=== PATIENT | female | born 1990 | race Caucasian/White ===

== ENCOUNTER 2018-10-22 10:58 | Emergency (ER) | payer MEDICAID, SELFPAY ==
[2018-10-22 11:00] VITALS: BP 119/69; PULSE 83; RESP 16; TEMP 36.8; O2SAT 97; BMI 26.4
--- NOTE | 2018-10-22 11:27 | ED.VIS.GEN ---
History of Present Illness Chief Complaint: Nausea/Vomiting Informant: Patient Onset: Today Narrative: approximately 20 weeks gestation presents for evaluation concerns of transient bulge from right side of the abdomen causing her have one emesis. Patient [facility] the past 3 weeks for opiate dependence and recovery. Reports was hospitalized for 5 days in [place], currently on Suboxone therapy and prenatals. Denies any complications during . She felt it felt weird being up on the right side therefore came for evaluation. Currently denies any symptoms. No fevers. No urinary symptoms. No vaginal bleeding. Prior similar symptoms: No Past Medical History Primary Care Physician: NOT,DEFINED [Primary Care Provider] - Smoking Status: Current every day smoker Review of Systems General: Denies: Chills, Fever, Sweats Eyes: Denies: Visual changes - bilaterally, Diplopia ENT: Denies: Rhinorrhea, Sore throat Cardiovascular: Denies: Chest pain, Palpitations Respiratory: Denies: Dyspnea, Cough, Dyspnea on exertion Gastrointestinal: Reports: Abdominal pain, Nausea, Vomiting. Denies: Diarrhea, Melena, Hematochezia Genitourinary: Denies: Dysuria, Hematuria, Frequency Musculoskeletal: Denies: Back pain, Extremity Pain Skin: Denies: Rash, Wounds Neurological: Denies: Headache, Weakness, Numbness Physical Exam Vital Signs/Narrative: Vital Signs Temp Pulse Resp BP Pulse Ox 10/22/18 11:00 98.2 F 83 16 119/69 97 Inital Vital Signs reviewed: Yes General: Well nourished, Well developed, No Acute Distress Head: Normocephalic, Atraumatic Eyes: Perrl, EOMI ENT: Moist mucous membranes, No rhinorrhea Neck: Supple, Nontender Cardiovascular: Regular rate, Regular rhythm, No murmurs Respiratory: No distress, CTA bilaterally, Chest nontender Abdomen: Soft, Nondistended, Normal bowel sounds, - - Gravid abdomen, negative Connor's or McBurney's tenderness. Back: Nontender, Normal Inspection Extremities: Nontender, No edema Skin: Normal color, No rash Neurological: Alert, Oriented x3, Cranial nerves II-XII grossly intact, Normal Strength, Normal Sensation Psychological: Normal affect, Normal Mood Diagnostic/Tx/Re-eval - Medical Decision Making Bedside ultrasound heart tones 125 with positive movement. Patient has history concerns with suspected movement causing bulging sensation and complaint from patient, currently asymptomatic. Patient reassured. Currently denies any pain any nausea or vomiting. She will keep her OB appointment in 2 days. ED Disposition - Plan for ED Patient: Disposition: Home or Assisted Living Diagnosis: Abdominal pain during Referrals: NOT,DEFINED [Primary Care Provider] - Additional Instructions: Suspect what you felt was movement of baby. Ultrasound notes heart tones 125. Keep your OB appointment in 2 days.
[2018-10-22 11:55] VITALS: RESP 16
== END 2018-10-22 11:55 | disposition home or self-care (01) ==
LOC: ED 11:46
PROVIDERS: Emergency Provider Emergency Medicine
DX: O26.892 Other specified pregnancy related conditions, second trimester (principal); R10.9 Unspecified abdominal pain; O99.332 Smoking (tobacco) complicating pregnancy, second trimester; F17.200 Nicotine dependence, unspecified, uncomplicated; O99.322 Drug use complicating pregnancy, second trimester; F11.20 Opioid dependence, uncomplicated; Z3A.20 20 weeks gestation of pregnancy
CPT/HCPCS: 99282

== ENCOUNTER 2019-03-06 18:00 | Inpatient (IN) | payer MEDICAID, SELFPAY ==
[2018-12-30 13:57] VITALS: BMI 28.3
[2019-03-06 18:11] VITALS: BMI 34.9
[2019-03-06] MEDS: Lactated Ringers 1,000 ML 50 ML IV (18:40)
[2019-03-06 18:55] LABS: Absolute Lymphocyte Count 2.46 X10^3/uL (0.83-4.51); Absolute Neutrophil Count 6.8 X10^3/uL (2.0-7.7); Basophil# 0.05 X10^3/uL; Basophil% 0.5 % (0-1); Eosinophil# 0.17 X10^3/uL; Eosinophils% 1.6 % (0-5); Hematocrit 31.5 % (37-47); Hemoglobin 10.1 g/dL (12.0-15.0); Lymphocyte # 2.46 X10^3/ul (4.0); Lymphocyte % 23.9 % (19-41); Mean Corp Hgb Conc 32.1 g/dL (32-36); Mean Corpuscular Volume 90.5 fL (81-99); Mean Platelet Vol. 10.9 fl (6.2-12.0); Monocyte# 0.76 X10^3/uL; Monocyte% 7.4 % (0-10); NRBC Flagged by Analyzer 0 % (0-5); Neutrophil # 6.75 X10^3/uL (2.7-7.7); Neutrophil % 65.4 % (47-70); Platelet Count 331 K/mm3 (150-450); RBC Distribution Width CV 15.2 % (11.6-14.6); Red Blood Count 3.48 M/mm3 (4.2-5.4); White Blood Count 10.3 K/mm3 (4.4-11.0)
[2019-03-06 19:14] LABS: Amphetamine Urine VISTA NEGATIVE (<1000 ng/mL); Barbiturate Urine VISTA NEGATIVE (< 200 ng/mL); Benzodiazepine Urine VISTA NEGATIVE (< 200 ng/mL); Cocaine Urine VISTA NEGATIVE (< 300 ng/mL); Ecstacy Urine VISTA NEGATIVE (< 500 ng/mL); Methadone Urine VISTA NEGATIVE (< 300 ng/mL); PCP Urine VISTA NEGATIVE (< 25 ng/mL); THC Urine VISTA NEGATIVE (< 50 ng/mL); Vista UDS pH Range 5
[2019-03-06] MEDS: Oxytocin 30 units/NS 500 ml 30 UNITS/500 ML IV.SOLN IV (20:22)
--- NOTE | 2019-03-06 20:45 | PCM.HP.OB ---
History Date of Admission: 03/06/19 Final SEBASTIÁN: 03/17/19 Gestational age: 38 Weeks and 3 Days History of this : Patient presents for induction of labor. Office NST showed a prolonged deceleration. Medical History: Medical History (Last Updated 03/06/19 @ 20:47 by Arcenio Weston) Seizures (Chronic) R56.9 H/O emotional problems (Chronic) Z86.59 Drug abuse (Acute) F19.10 Anemia (Chronic) D64.9 Bipolar disorder F31.9 Hepatitis C B19.20 Surgical History: Surgical History (Last Updated 03/06/19 @ 20:49 by Arcenio Weston) History of cervical LEEP biopsy affecting care of mother, antepartum O34.40, Z98.890 Allergies No Known Allergies Allergy (Verified 03/06/19 18:12) Home Medications: Home Medications buprenorphine HCl 8 mg sublingual tablet 16 mg SUBLINGUAL DAILY tab 11/12/18 docusate sodium 100 mg PO DAILY 11/12/18 prenat.vits,job,qkp-aezs-unqtj 1 tab PO DAILY 11/12/18 Ferrous Sulfate, Dried [Iron] 180 mg PO BID 03/06/19 Gabapentin 800 mg PO TID 03/06/19 Lamotrigine 200 mg PO DAILY 03/06/19 Ondansetron HCl [Zofran] 4 mg PO DAILY 03/06/19 Smoking Status: Current every day smoker Substance Use Type: Amphetamines, Heroin, Prescribed Number of Fetus(es): 1 NST - FHR Rate Baby A Baseline: 135 Variability:: Moderate Accelerations:: 15 x 15 NST Reactive:: Yes Uterine Activity:: Irregular History Past Pregnancies: Past Pregnancies Delivery Date Name GA/ Weeks Outcome Route Wt Infant Sex Labor Length Anesthesia Delivery Location Provider FOB Labs: See [facility] H[facility]P Physical Exam General: Alert, Oriented x3 Abdomen: Soft, Non Tender, Non-Distended - ff mid & below umb Extremities:: No tenderness/swelling MOLDING PROCESS TECHNICIAN: Normal external genitalia Estimated gestational size: Appropriate for gestational size Presentation: Cephalic Cervix Dilation (cm): 2 Station: -2 - 70 Effacement (%): 70 Assessment/Plan All Active Problems (Last Updated 03/06/19 @ 20:47 by Arcenio Weston) Drug abuse (Acute) This is a 28 year-old, G6, P4104, at 38&3 weeks gestational age. Admit to L&D Induction of labor for non reassuring heart tracing - on pitocin Maternal subutex use GBS positive - on penicillin per protocol Hepatitis C - pediatrics notified EFW - less than 4500g, patient with adequate pelvis Plan for social work consult PP
--- NOTE | 2019-03-06 23:19 | PCM.PN.BLA ---
Progress Note S: Patient comfortable with ctxs O: cvx - 2.5/70/-2 AROM clear fluid IUPC placed fhts 125 with mod variability, accels tocos Q2-3 minutes A&P: Continue pitocin induction
[2019-03-06] MEDS: Lactated Ringers 500 ML 999 ML IV (23:55)
[2019-03-07] MEDS: fentaNYL-bupivacaine (epidural) 100 ML BAG EPIDURAL (01:41)
[2019-03-07] MEDS: Lactated Ringers 500 ML 999 ML IV (04:01)
[2019-03-07] MEDS: Lactated Ringers 1,000 ML 200 ML IV (05:06)
[2019-03-07] MEDS: Ondansetron 4 MG/2 ML Vial IV (05:07)
[2019-03-07] MEDS: Oxytocin 30 units/NS 500 ml 30 UNITS/500 ML IV.SOLN 334 UNITS IV (06:29)
--- NOTE | 2019-03-07 06:49 | PCM.OPRPT ---
Vaginal Delivery Maternal Presentation: Medically Indicated Induction Method of Induction: Pitocin, Amniotomy Medical Reason for Induction: Compromise: list: - Non reassuring heart tracing Amniotic Membrane Rupture Type: Artificial Amniotic Fluid Description: Clear Final SEBASTIÁN: 03/17/19 Gestational age: 38 Weeks and 4 Days Date of Procedure: 03/07/19 Pre-Operative Diagnosis: (1) Non reassuring hear tracing (2) Maternal subutex use (3) H/o IUFD Post-Operative Diagnosis: Same Surgery/ Procedure Performed: Spontaneous Vaginal Delivery Type of Anesthesia: Epidural Description of Procedure: Patient prepped & draped in stirrups when C/C/+2. She pushed to deliver the head. Tight nuchal cord noted and was clamped & cut. head gently guided to allow delivery of anterior and posterior shoulders. No excess traction placed on head. Body delivered and placed on maternal abdomen. Placenta delivered with gentle traction. Good uterine tone obtained. Presentation: YAW Placental Delivery Description: Expressed Placenta Disposition: [facility] Cord Vessel Description: 3 Vessels Cord Entanglement: Around neck x 1, tight Estimated Blood Loss: 250ml Infant A gender: Male (1 minute): 8 (5 minute): 9 Episiotomy Description: None Laceration: None Medications given after delivery: IV Pitocin Complications: None
[2019-03-07] MEDS: Ibuprofen 600 MG Tablet PO ×2 (08:02→14:32)
[2019-03-07] MEDS: BUPRENORPHINE HCL 8 MG TAB.SUBL 16 MG SL (11:11)
[2019-03-07] MEDS: lamoTRIgine 100 MG Tablet 200 MG PO (12:13)
[2019-03-07] MEDS: Gabapentin 800 MG Tablet PO ×2 (12:13→22:27)
[2019-03-07] MEDS: Prenatal Vits Tablet 1 TABLET PO (13:03)
[2019-03-07] MEDS: Ondansetron ODT 4 MG Tablet PO (13:03)
--- NOTE | 2019-03-07 15:45 | CASEMGMT ---
Social Work Assessment Labor and Delivery Unit Patient Address: [address] [place] [id number] Phone number: [phone] Date of Referral: 03.07.2019 Time of Referral: 947 Referred By: Dr. Arcenio Weston Date of Intervention: 03.07.2019 Time of Intervention: 1544 Reason for Referral: maternal substance abuse History obtained from: medical records and mother of baby (SANDRA) Sridevi Lancaster Household composition: SANDRA currently resides at [facility] with other women in recovery from substance use issues. Plans to take baby boy to this home at time of discharge. Patient's parent/guardian status: SANDRA is 28-year-old single female. Father of baby is unknown. SANDRA has 4 other living children and then had one child born at 21 weeks and is . Minor children include: Jaye (born 09.21.2005), Deon born (11.13.2008), Jennifer (born 07.20.2012), and Ely (born 05.20.16). All children have been placed and adopted into the same home. Child born in 2014, Parish, is after 21-week delivery. [place], Tony Lancaster, born on 03.07.2019. Medical History: SANDRA is G6, P5 to 6 after delivery of baby boy Tony Lancaster on 03.07.2019. care started late at 19 weeks, once SANDRA was settled into residential treatment. Care regular thereafter. SANDRA has history of Hepatitis C diagnosis. MOB reports history of delivery in 2012 resulting in a 7-day pediatric stay for DANN monitoring. Delivery in 2016 resulted in a 28 stay for DANN and treatment due to DANN. baby, Tony, delivered at 38 weeks, weighed 7 pounds 14 ounces at . 8 and 9. Educational Status: MOB got through [employer] 10th grade and into the 11th. Reports can read, write, and understand what is read. Financial Status: Support from [facility]. Infant Supplies: MOB reports to have all needed supplies including pack-n-play, 2 swings, clothing, diaper, wipe, and a car seat. Childcare/Caregiver(s): MOB Transportation: [facility] or help from other supports. Programs/Agencies Involved: [facility] for food and medical. [facility]. [employer]. [facility] for residential treatment at [place]; [facility] for counseling, [facility] for case management, [employer] [facility] house principal. Children Services/Legal Issues: History of incarceration for a year, out in May of 2018. No current charges or probation. History of involvement with [facility] service and loss of custody of other children, related to maternal history of substance use. Behavioral Health Issues: Mental Health History: MOB report history of diagnosis of Bipolar disorder in [address] [facility] counseling services. History of depression and anxiety. Denies any history of suicidal ideation, planning, intent, or attempts. Denies history of homicidal ideation. MOB reports current treatment of bipolar disorder with Lamictal 200 mg. Also reportedly prescribed 800 mg of Neurontin three times a day. History of Prozac. Most recently prescribed by a family doctor due to long wait for psychiatry in this area. Substance Use History: MOB has history with heroin, fentanyl, methamphetamines. No other illicit drug use reported by MOB at this time. Use of reported illicit substances in the beginning of until MOB checked self into [facility] for detox and start of Subutex in September of 2018. MOB report has been 5 months clean from illicit substances at this point. MOB reports history of Subutex in the past. Chart indicates MOB has history of drug overdose in 2017, 2018, and 2019. Currently prescribed Subutex by Dr. Miner via [facility]. Family History: Chart indicates MOB?s parents have history of substance use issues. Drug Screens: Maternal positive drug screen for amphetamine and methamphetamines on 10.03.2018 at [place]. Negative maternal drug screen on 10.24.18 and at delivery on 03.06.2019. Baby?s urine drug screen is negative, and meconium is pending. Family/Social Stressors: Maternal substance use issues, homelessness, and poor relationship at beginning of . History of loss of custody of older children. Currently in treatment and building a support system. Support Systems: Reports MOB?s father who lives in [place] is a good support, as well as [facility] staff and [employer]. Depression/Shaken Baby/Safe Sleeping: information being provided on all topics. ASSESSMENT: Met with MOB in hospital room. MOB cooperative with social work visit and assessment questions. MOB held fair to normal eye contact, speech within normal limits, motor activity within normal limits a well. MOB reports to feel her recovery is going well and plans to return to [facility] with the baby when baby is ready for discharge. MOB reports hope to be able to take baby with her at discharge and for a chance keep and parent baby. MOB reports understanding that children services rice must be called due to substance exposed . MOB repots understanding of need for DANN resting and that has sade through his 2 times before. Supportive listening and encouragement offered today and reinforced positive choices that MOB has made to get into treatment. Safe Plan of Care for related to substance use: Continue working a recovery program; abstain from illicit substance use. PLAN: Social work to follow and assist. MOB will be discharged prior to baby. MOB agrees to [facility] referral and [facility] referrals, which social insurance specialist will work on next week. Will provide MOB with home home going resources for the community a well. -LUCIANO Jackson, CUSTOMER SERVICE TECHNICIAN
[2019-03-07 16:00] VITALS: BP 115/60; PULSE 73; RESP 16; TEMP 36.4; O2SAT 97
[2019-03-07 18:00] VITALS: BP 116/79; PULSE 89; RESP 16; TEMP 36.6; O2SAT 98
[2019-03-07 20:34] VITALS: BP 124/83; PULSE 68; RESP 16; TEMP 36.7
[2019-03-07] MEDS: Senna/Docusate Sodium 1 Tablet PO (22:35)
[2019-03-07 23:53] VITALS: BP 134/85; PULSE 73; RESP 134; TEMP 36.8
[2019-03-08 04:00] VITALS: BP 120/71; PULSE 70; RESP 16; TEMP 37.2
[2019-03-08] MEDS: Gabapentin 800 MG Tablet PO ×3 (06:06→21:50)
[2019-03-08 08:56] VITALS: BP 132/86; PULSE 100; RESP 16; TEMP 36.8
[2019-03-08] MEDS: Ibuprofen 600 MG Tablet PO ×2 (09:01→22:47)
[2019-03-08] MEDS: BUPRENORPHINE HCL 8 MG TAB.SUBL 16 MG SL (10:31)
[2019-03-08] MEDS: lamoTRIgine 100 MG Tablet 200 MG PO (10:32)
[2019-03-08] MEDS: Ondansetron ODT 4 MG Tablet PO (10:32)
[2019-03-08] MEDS: Prenatal Vits Tablet 1 TABLET PO (10:32)
--- NOTE | 2019-03-08 11:48 | PCM.PN.OB ---
Subjective: Doing well per patient and nursing staff. Ambulating and taking PO without difficulty. No complaints. Pain controlled. Taking subutex. Planning discharge to [facility] status tomorrow. Baby will not be discharge at this time for DANN. - Physical Exam Vitals/I&O's: Vital Signs Temp Pulse Resp BP Pulse Ox 98.2 F 100 16 132/86 H 98 03/08/19 08:56 03/08/19 08:56 03/08/19 08:56 03/08/19 08:56 03/07/19 18:00 Oxygen Delivery Method Room Air Weight: 197 lb 5.019 oz Body Mass Index (BMI) 34.9 Intake and Output for Last 24 Hours 03/06/19 03/07/19 03/08/19 23:59 23:59 23:59 Intake Total 110.06 / 110.06 2822.10 / 2822.10 Output Total 650 / 650 Balance 110.06 / 110.06 2172.10 / 2172.10 General: Alert, Oriented x3, Cooperative HEENT: Atraumatic, Normocephalic Neck: Trachea Midline Lungs: Clear to auscultation, Normal air movement, No rhonchi, No wheeze Cardiovascular: Regular rate, Regular Rhythm, No murmurs Abdomen: Bowel Sounds Present, Soft - fundus firm 2 below U Extremities: No edema Psych/Mental Status: Normal Affect, Appropriate Current Medications Acetaminophen (Tylenol) 1,000 mg PO Q8H PRN PRN PRN Reason: Pain Score 1-3/10 Bisacodyl (Dulcolax) 10 mg RECTAL UD PRN PRN Reason: If no BM Buprenorphine HCl (Buprenorphine Hcl) 16 mg SL DAILY COUNT INCLUDES THE [facility] Last Admin: 03/08/19 10:31 Dose: 16 mg Documented by: Dibucaine (Dibucaine) 1 applic TOPICAL TID PRN PRN; Protocol PRN Reason: Discomfort Gabapentin (Neurontin) 800 mg PO TID COUNT INCLUDES THE [facility] Last Admin: 03/08/19 06:06 Dose: 800 mg Documented by: Hydrocortisone (Hytone) 1 applic TOPICAL TID PRN PRN; Protocol PRN Reason: Discomfort Ibuprofen (Motrin) 600 mg PO Q6H PRN PRN PRN Reason: Pain Score 1-3/10 Last Admin: 03/08/19 09:01 Dose: 600 mg Documented by: Lamotrigine (Lamictal) 200 mg PO DAILY COUNT INCLUDES THE [facility] Last Admin: 03/08/19 10:32 Dose: 200 mg Documented by: Methylergonovine Maleate (Methergine) 0.2 mg IM X1 PRN PRN Reason: Excess bleeding/uterine atony Ondansetron HCl (Zofran) 4 mg IV Q4H PRN PRN PRN Reason: Nausea Ondansetron HCl (Zofran Odt) 4 mg PO DAILY COUNT INCLUDES THE [facility] Last Admin: 03/08/19 10:32 Dose: 4 mg Documented by: Multivit/Folic Acid/Iron (Prenatabs Fa) 1 tablet PO DAILY@1200 COUNT INCLUDES THE [facility] Last Admin: 03/08/19 10:32 Dose: 1 tablet Documented by: Senna/Docusate Sodium (Senokot-S, Esme-Colace) 1 - 2 tablet PO DAILY PRN PRN PRN Reason: Constipation Last Admin: 03/07/19 22:35 Dose: 1 tablet Documented by: Simethicone (Mylicon) 80 mg PO PCHS PRN PRN Reason: Indigestion/Stomach pain Sodium Chloride () 5 - 15 ml IV UD PRN PRN Reason: SALINE FLUSH Medical Necessity - Tobacco Use Smoking Status: Current every day smoker Assessment/Plan All Active Problems (Last Updated 03/06/19 @ 20:47 by Arcenio Weston) Drug abuse (Acute) A:PPD #1 P: 1) Routine care 2) Continue with pain management 3) Planning discharge to hot status tomorrow 4) Continue subutex
[2019-03-08 14:00] VITALS: PULSE 120; RESP 40; TEMP 37.1
[2019-03-08 16:43] VITALS: BP 122/84; PULSE 64; RESP 16; TEMP 36.9
[2019-03-08 20:15] VITALS: BP 128/67; PULSE 68; RESP 16; TEMP 36.6
--- NOTE | 2019-03-08 21:25 | NURSING ---
spoke to pharmacy in regards to gabapentin schedule, pharmacy confirmed to keep patients 2200 gabapentin dose at that time even if 1400 dose given later than scheduled
[2019-03-09] VITALS (7 sets, daily range): BP systolic 100–139; BP diastolic 53–87; PULSE 63–68; RESP 14–18; TEMP 36.6–36.9
[2019-03-09] MEDS: Gabapentin 800 MG Tablet PO ×3 (06:25→22:27)
[2019-03-09] MEDS: Prenatal Vits Tablet 1 TABLET PO (10:15)
[2019-03-09] MEDS: BUPRENORPHINE HCL 8 MG TAB.SUBL 16 MG SL (10:15)
[2019-03-09] MEDS: Ondansetron ODT 4 MG Tablet PO (10:15)
[2019-03-09] MEDS: lamoTRIgine 100 MG Tablet 200 MG PO (10:15)
--- NOTE | 2019-03-09 11:04 | PCM.PN.OB ---
Subjective: Doing well per patient and nursing staff. Ambulating and taking PO without difficulty. Voiding and taking PO without difficulty. Pain controlled. . Denies headache, visual changes, chest pain, SOB, leg pain, or increased vaginal bleeding. Lochia normal. Planning discharge to [facility] status, baby remains inpatient. - Physical Exam Vitals/I&O's: Vital Signs Temp Pulse Resp BP Pulse Ox 98.0 F 68 16 139/87 H 98 03/09/19 10:00 03/09/19 10:00 03/09/19 10:00 03/09/19 10:00 03/07/19 18:00 Oxygen Delivery Method Room Air Weight: 197 lb 5.019 oz Body Mass Index (BMI) 34.9 Intake and Output for Last 24 Hours 03/07/19 03/08/19 03/09/19 23:59 23:59 23:59 Intake Total 2822.10 / 2822.10 Output Total 650 / 650 Balance 2172.10 / 2172.10 General: Alert, Oriented x3, Cooperative HEENT: Atraumatic, Normocephalic Neck: Trachea Midline Lungs: Clear to auscultation, Normal air movement, No rhonchi, No wheeze Cardiovascular: Regular rate, Regular Rhythm, No murmurs Abdomen: Bowel Sounds Present, Soft - Fundus firm 2 below U Extremities: No edema Neurological: Deep Tendon Reflexes 2+/4 and Symmetrical - No clonus Psych/Mental Status: Normal Affect, Appropriate Current Medications Acetaminophen (Tylenol) 1,000 mg PO Q8H PRN PRN PRN Reason: Pain Score 1-3/10 Bisacodyl (Dulcolax) 10 mg RECTAL UD PRN PRN Reason: If no BM Buprenorphine HCl (Buprenorphine Hcl) 16 mg SL DAILY [facility] Last Admin: 03/09/19 10:15 Dose: 16 mg Documented by: Dibucaine (Dibucaine) 1 applic TOPICAL TID PRN PRN; Protocol PRN Reason: Discomfort Gabapentin (Neurontin) 800 mg PO TID [facility] Last Admin: 03/09/19 06:25 Dose: 800 mg Documented by: Hydrocortisone (Hytone) 1 applic TOPICAL TID PRN PRN; Protocol PRN Reason: Discomfort Ibuprofen (Motrin) 600 mg PO Q6H PRN PRN PRN Reason: Pain Score 1-3/10 Last Admin: 03/08/19 22:47 Dose: 600 mg Documented by: Lamotrigine (Lamictal) 200 mg PO DAILY [facility] Last Admin: 03/09/19 10:15 Dose: 200 mg Documented by: Methylergonovine Maleate (Methergine) 0.2 mg IM X1 PRN PRN Reason: Excess bleeding/uterine atony Ondansetron HCl (Zofran) 4 mg IV Q4H PRN PRN PRN Reason: Nausea Ondansetron HCl (Zofran Odt) 4 mg PO DAILY [facility] Last Admin: 03/09/19 10:15 Dose: 4 mg Documented by: Multivit/Folic Acid/Iron (Prenatabs Fa) 1 tablet PO DAILY@1200 [facility] Last Admin: 03/09/19 10:15 Dose: 1 tablet Documented by: Senna/Docusate Sodium (Senokot-S, Esme-Colace) 1 - 2 tablet PO DAILY PRN PRN PRN Reason: Constipation Last Admin: 03/07/19 22:35 Dose: 1 tablet Documented by: Simethicone (Mylicon) 80 mg PO PCHS PRN PRN Reason: Indigestion/Stomach pain Sodium Chloride () 5 - 15 ml IV UD PRN PRN Reason: SALINE FLUSH Medical Necessity - Tobacco Use Smoking Status: Current every day smoker Assessment/Plan All Active Problems (Last Updated 03/06/19 @ 20:47 by Arcenio Weston) Drug abuse (Acute) A:PPD #2 P: 1) Routine and instructions 2) utilization manager from [facility] to assist patient with medications once discharged. 3) Discharge to hot status 4) Follow up in 2-3 days for blood pressure check in office. Preeclampsia signs reviewed. BP mildly elevated. Asymptomatic 5) Follow up in 2 weeks and 6 weeks for care.
--- NOTE | 2019-03-09 11:15 | DCINST_ITS ---
Discharge Diet: No Restrictions Discharge Activity: Return to Normal Activity, May not drive while taking narcotic pain medications., May Shower, May Take a Tub Bath May resume sexual activity in: 4-6 weeks Weight Bearing Status: Full weight bearing Additional Activity Instructions:: Nothing in the vagina for 4-6 weeks. You may return to work/school in 6 weeks. Call your doctor if your incision/area has: Continuous Slow Oozing, Sudden Increased Bleeding, Increased Pain/ Swelling, Increased Redness, Foul Smelling Discharge Call your doctor if you observe: Fever of 101 or Higher, Inability to urinate, Inability to have a bowel movement, Using more than one pad per hour, Shortness of breath, Chest pain, Increased palpitations (irregular heartbeat), Calf discomfort, Uncontrolled pain Additional Instructions: If you experience any of the following, contact your healthcare provider. * Bleeding that soaks a pad every hour for 2 hours * Fever 100.4 or higher * Unrelieved incision or abdominal pain * Swelling, redness, discharge or bleeding from your incision or episiotomy site * Your incision begins to separate * Problems urinating (including inability to urinate or burning while urinating). * Visual changes * Severe headache * Flu-like symptoms * Pain or redness in one of both of your breasts * Pain, warmth, tenderness or swelling in your legs, especially the calf area * Frequent nausea and vomiting * Symptoms of depression or anxiety If you experience any of the following, call 911 or go to the nearest Emergency Room. * Chest pain * Problems breathing * Seizure activity * Partial or complete paralysis of a body part, slurred speech, weakness or drooping of the face, or a sudden inability to walk or hold your balance Allergies/Adverse Reactions: Allergies No Known Allergies Allergy (Verified 03/06/19 18:12) Medications to take at Discharge buprenorphine HCl 8 mg sublingual tablet 16 mg SUBLINGUAL DAILY tab 11/12/18 docusate sodium 100 mg PO DAILY 11/12/18 prenat.vits,job,jvu-wcul-rgzev 1 tab PO DAILY 11/12/18 Ferrous Sulfate, Dried [Iron] 180 mg PO BID 03/06/19 Gabapentin 800 mg PO TID 03/06/19 Lamotrigine 200 mg PO DAILY 03/06/19 Ondansetron HCl [Zofran] 4 mg PO DAILY 03/06/19 Ibuprofen [Motrin] 600 mg PO Q6H PRN PRN #30 tab 03/09/19 The following prescriptions were given: Ibuprofen [Motrin] 600 mg PO Q6H PRN PRN #30 tab PRN Reason: Pain Score 1-3/10 Transmission Status: Pending to [facility] - [id number] Please Follow Up With: Arcenio Weston When: Call to make an appointment with your doctor in 2-3 days for blood pressure check. In 2 weeks and 6 weeks. Primary Care Physician: Bonnie Cheema MD [Primary Care Provider] - Test Results: Test results from this visit will be discussed in further detail at your follow- up appointment, if applicable.
--- NOTE | 2019-03-09 23:18 | NURSING ---
pt. discharged to hotel, staying for DANN monitoring, desires to be discharged now, disregard previous discharge time of 0000 on 03/10/2019
--- NOTE | 2019-03-20 13:10 | CASEMGMT ---
Social Work Labor and Delivery Unit Patient/mother of baby (MOB) was discharged as a patient as of 03.09.2019. This narrative writer did follow up with MOB while baby remained a patient in the hospital for provision of resources, referral to children services of [facility], and other appropriate referrals such as [facility] and [facility]. No other services requested or indicated from MOB's standpoint. MOB will return to [facility] for living. YUNIEL Jackson, MEDICAL OPERATIONS SUPERVISOR
== END 2019-03-09 23:20 | disposition home or self-care (01) | DRG 560 ==
PROVIDERS: Admitting Provider Obstetrics & Gynecology; PCP Internal Medicine; Visit Provider Obstetrics & Gynecology
DX: O76 Abnormality in fetal heart rate and rhythm complicating labor and delivery (principal); Z3A.38 38 weeks gestation of pregnancy; Z23 Encounter for immunization; F17.200 Nicotine dependence, unspecified, uncomplicated; O99.334 Smoking (tobacco) complicating childbirth; F11.10 Opioid abuse, uncomplicated; F15.10 Other stimulant abuse, uncomplicated; O99.324 Drug use complicating childbirth; Z37.0 Single live birth; F31.9 Bipolar disorder, unspecified; O99.344 Other mental disorders complicating childbirth; B19.20 Unspecified viral hepatitis C without hepatic coma; O98.42 Viral hepatitis complicating childbirth; O99.824 Streptococcus B carrier state complicating childbirth; O69.1XX0 Labor and delivery complicated by cord around neck, with compression, not applicable or unspecified
CPT/HCPCS: 59025; 59050; 80307; 85025; 86850; 86900; 86901; 99218; J7120; G0378; J0290; J2405

== ENCOUNTER → 2019-04-16 13:56 | Outpatient (CLI) | payer MEDICAID, SELFPAY ==
[2019-04-16 13:26] VITALS: BMI 34.9
[2019-04-16 15:37] LABS: ALB/GLOB Ratio 1.1 RATIO (0.9-2.4); AST(SGOT) 42 U/L (15-37); Alanine Aminotransfer ALT/SGPT 82 U/L (13-56); Albumin, Serum 3.9 g/dL (3.2-5.0); Alkaline Phosphatase 86 U/L (45-117); Anion Gap 3 (5-15); BUN 16 mg/dL (7-18); BUN/Creat Ratio 15.7 RATIO (10-20); Calcium,Total 9.7 mg/dL (8.5-10.1); Chloride 107 mmol/L (98-107); Creatinine, Serum 1.02 mg/dL (0.55-1.02); EST Glomerular Filtration Rate 68 mL/min (>60); Est Glom Filt Rate - Afr Amer 82 mL/min (>60); Globulin 3.7 g/dL (2.2-4.2); Glucose 93 mg/dL (74-106); Protein, Total 7.6 g/dL (6.4-8.2); Sodium Level 141 mmol/L (136-145)
== END ==
PROVIDERS: PCP Internal Medicine; Referring Provider Internal Medicine; Visit Provider Internal Medicine
DX: R56.9 Unspecified convulsions (principal)
CPT/HCPCS: 36415; 80053

== ENCOUNTER 2021-02-28 13:35 | Outpatient (CLI) | payer MEDICAID, SELFPAY ==
[2021-02-28 15:14] LABS: Absolute Lymphocyte Count 2.96 X10^3/uL (0.83-4.51); Absolute Neutrophil Count 2.7 X10^3/uL (2.0-7.7); Basophil# 0.06 X10^3/uL; Basophil% 0.9 % (0-1); Eosinophil# 0.36 X10^3/uL; Eosinophils% 5.5 % (0-5); Hematocrit 42.2 % (37-47); Lymphocyte # 2.96 X10^3/ul (0.83-4.51); Lymphocyte % 45.3 % (19-41); Mean Corp Hgb Conc 33.2 g/dL (32-36); Mean Corpuscular Volume 90.4 fL (81-99); Mean Platelet Vol. 11.1 fl (6.2-12.0); Monocyte# 0.44 X10^3/uL; Monocyte% 6.7 % (0-10); NRBC Flagged by Analyzer 0 % (0-5); Neutrophil % 41.3 % (47-70); Platelet Count 317 K/mm3 (150-450); RBC Distribution Width CV 13.2 % (11.6-14.6); RBC Distribution Width SD 43.7 fl (35.1-43.9); Red Blood Count 4.67 M/mm3 (4.2-5.4); White Blood Count 6.5 K/mm3 (4.4-11.0)
[2021-02-28 15:50] LABS: AST(SGOT) 25 U/L (15-37); Alanine Aminotransfer ALT/SGPT 37 U/L (13-56); Albumin, Serum 3.8 g/dL (3.2-5.0); Alkaline Phosphatase 58 U/L (45-117); Anion Gap 5 (5-15); BUN 13 mg/dL (7-18); BUN/Creat Ratio 13.9 RATIO (10-20); Calcium,Total 9.3 mg/dL (8.5-10.1); Chloride 103 mmol/L (98-107); Creatinine, Serum 0.94 mg/dL (0.55-1.02); EST Glomerular Filtration Rate 74 mL/min (>60); Est Glom Filt Rate - Afr Amer 89 mL/min (>60); Globulin 3.9 g/dL (2.2-4.2); Glucose 97 mg/dL (74-106); Protein, Total 7.7 g/dL (6.4-8.2); Sodium Level 137 mmol/L (136-145); T4 Free Direct 0.92 ng/dL (0.76-1.46); Thyroid Stim Hormone (TSH) 2.96 uIU/mL (0.358-3.74)
[2021-03-03 21:41] LABS: Lamotrigine (Lamictal) Level 3.9 ug/mL (2.0-20.0)
== END 2021-02-28 23:59 | disposition short-term general hospital (02) ==
LOC: BIMLAB 13:36
PROVIDERS: PCP Internal Medicine; Referring Provider Internal Medicine; Visit Provider Internal Medicine
DX: F31.9 Bipolar disorder, unspecified (principal); Z13.29 Encounter for screening for other suspected endocrine disorder
CPT/HCPCS: 36415; 80053; 82542; 84439; 84443; 85025

== ENCOUNTER 2021-08-02 14:42 | Inpatient (IN) | payer MEDICAID, SELFPAY ==
[2021-08-02 14:43] VITALS: BP 118/87; PULSE 89; RESP 14; TEMP 36.8; O2SAT 99; BMI 31.1
--- NOTE | 2021-08-02 14:58 | EDS_ITS ---
HPI History of Present Illness Chief Complaint: Substance Abuse Informant: patient Narrative Narrative: Patient was brought in over by a outbound call center representative from [facility] for detox before entering their residential program. Patient states she used to be on Suboxone when she lived here. [place]. She states on methadone it did not control my brain and she did use on it. She has been back on Suboxone through [facility] for about 2 or 3 months. She states it has worked well and she has not used drugs while on that. However, she knew she was starting in [facility]. She wanted to get high before she went in. Therefore, she stopped the Suboxone and then was using heroin/fentanyl. [facility] Medical History Anemia Bipolar disorder Confusion Drug abuse H/O emotional problems Hepatitis C Polysubstance abuse Screening for thyroid disorder Seizures Home Medications gabapentin 800 mg tablet 800 mg PO TID anxiety 3 months #270 tabs 10/15/20 [Rx Last Taken 08/02/21] lamotrigine 200 mg tablet,extended release 24 hr 200 mg PO DAILY #90 tabs 10/15/20 [Rx Last Taken 08/02/21] buprenorphine 12 mg-naloxone 3 mg sublingual film (Suboxone) 1 film buccal Q24H 08/02/21 [History Last Taken 07/31/21] Allergy/AdvReac Type Severity Reaction Status Date / Time No Known Allergies Allergy Verified 08/02/21 14:43 Family History Other Alcohol abuse Anemia Anxiety Arthritis Asthma Breast cancer Cervical cancer Colon cancer Depression Diabetes Heart disease Elliott's chorea Hypertension Mental disorder Myocardial infarction Ovarian cancer Psychiatric care Seizures Thyroid disorder Surgical History History of cervical LEEP biopsy affecting care of mother, antepartum Social History Smoking Status: Current every day smoker tobacco type: cigarettes alcohol intake: never substance use type: former substance user what type of physical activity do you participate in: none ROS ROS ED Constitutional Constitutional ED: Denies fever(s) or subjective Eyes Eyes: Denies change in vision ENT ENT ED: Denies rhinorrhea Cardiovascular Cardiovascular: Denies chest pain Respiratory/Chest Respiratory/Chest: Denies cough or dyspnea Gastrointestinal Gastrointestinal: Denies diarrhea, nausea or vomiting Genitourinary Genitourinary ED: Reports other Details: Last menstrual period ended about 2 days ago. Normal timing. Musculoskeletal Musculoskeletal: Denies myalgias Integumentary Denies rash Neurologic Neurologic: Denies headache(s) Psychiatric Psychiatric: Reports anxiety; Denies suicidal ideation Endocrine Endocrinology: Denies polydipsia or polyuria Allergic/Immunologic Allergic/Immunologic ED: Denies urticaria EXAM Physical Exam Const Vital Signs: 08/02/21 14:43 Temperature 98.2 F Temperature Source Temporal Pulse Rate 89 Respiratory Rate 14 Blood Pressure 118/87 H Blood Pressure Mean 97 Pulse Ox 99 Oxygen Delivery Method Room Air Positive well nourished and well developed Constitutional Narrative: Patient does look to be slightly under the influence of something. She is somewhat fidgety and has trouble sitting still. But she does carry on a reasonably organized conversation. General Appearance ED: well developed and NAD; Negative for pallor HEENT Reports moist mucous membranes Eyes PERRL Eyes Narrative: Pupils are about 2 and half to 3 mm and reactive. Neck no JVD Resp normal respiratory effort and clear to auscultation bilaterally Auscultation: Negative for rales, rhonchi or wheezes Cardio regular rate and regular rhythm GI soft to palpation and non-tender Back/Spine no CVA tenderness Neuro oriented x3 Psych Mood & Affect: anxious Skin General Skin Exam: Negative for jaundice or pallor MDM MDM MDM Narrative Medical decision making narrative: I discussed case with the hospitalist. Patient will be admitted for detox. Blood work was ordered by them and is pending. Discharge Plan Triage Chief Complaint: Substance Abuse ED Provider: Festus Short Dx/Rx/DC Orders Clinical Impression: Opioid abuse, Desire for detoxification Primary Care Provider: Bonnei Cheema Disposition Disposition: Acute Care Hospital [facility]
--- NOTE | 2021-08-02 15:23 | CM.ED ---
Social Work Note ELVA reviewed chart. Pt is at [facility] for detox. SW met with pt. Pt confirms she is at [facility] for Detox/RAMP program. Pt states that she was at the [facility] for 1 year and getting Suboxone treatment. Pt states she has also been on Methadone. Pt states she is on daily dose 12mg. Pt states that she uses Fentanyl and last use was this morning. Pt states that it is arranged for her to go to residential treatment at discharge. SW placed a call to Carin, Addiction Therapist, and provided referral. Plan: BERTRAND Ramirez COLD ROLLING COORDINATOR, STRATEGIC SOURCING MANAGER
--- NOTE | 2021-08-02 15:23 | PCM.HP.STD ---
HPI - General General Date of Admission: 08/02/21 Date of Service: 08/02/21 Chief Complaint: Had fentanyl in the morning, high risk for withdrawal HPI Narrative MAGUE CORTÉS, is a 30 F with history of chronic opioid/fentanyl use, chronic hepatitis C status post completed treatment in 2019 in senior living was brought in to ED by automotive leasing sales representative from 184 risk of withdrawal. Patient has been on Suboxone through the [facility] but she did not take it for 2 days and instead she took 10 mcg of fentanyl. She also took capsule of amphetamine for last 2 days. She was supposed to go to residential program today versus stated she quit taking Suboxone wanted to get high before going to residential program. Denies anxiety /panic attack, restlessness, abdominal pain, diarrhea, nausea, vomiting, hallucinations, delusions or tremors. She has history of bipolar disorder on lamotrigine and gabapentin with fast and pressured speech. Denies suicidal ideation or attempt. Patient is neutral. Started today. Denies . [facility] Medical History Anemia Bipolar disorder Confusion Drug abuse H/O emotional problems Hepatitis C Polysubstance abuse Screening for thyroid disorder Seizures Home Medications gabapentin 800 mg tablet 800 mg PO TID anxiety 3 months #270 tabs 10/15/20 [Rx Last Taken 08/02/21] lamotrigine 200 mg tablet,extended release 24 hr 200 mg PO DAILY #90 tabs 10/15/20 [Rx Last Taken 08/02/21] buprenorphine 12 mg-naloxone 3 mg sublingual film (Suboxone) 1 film buccal Q24H 08/02/21 [History Last Taken 07/31/21] Allergy/AdvReac Type Severity Reaction Status Date / Time No Known Allergies Allergy Verified 08/02/21 14:43 Family History Other Alcohol abuse Anemia Anxiety Arthritis Asthma Breast cancer Cervical cancer Colon cancer Depression Diabetes Heart disease Deirdre's chorea Hypertension Mental disorder Myocardial infarction Ovarian cancer Psychiatric care Seizures Thyroid disorder Surgical History History of cervical LEEP biopsy affecting care of mother, antepartum Social History Smoking Status: Current every day smoker tobacco type: cigarettes alcohol intake: never substance use type: former substance user what type of physical activity do you participate in: none ROS ROS Narrative Constitutional: No fever. HEENT: Reports systems reviewed and no addt'l complaints, except as documented Respiratory/Chest: Denies chest pain, shortness of breath at rest or with exertion Gastrointestinal: Denies coffee ground emesis, hematemesis or vomiting Genitourinary: Denies burning urination or new urinary tract symptoms Musculoskeletal: Denies joint pain and limited range of motion Neurologic: Denies seizure-like activity Psychiatric: Mild pressured speech, fast and impulsive. Bipolar disorder skin: No ulcer. No rash. Denies needle use in last 2 years. Endocrinology: Reports systems reviewed and no addt'l complaints, except as documented Hematologic/Lymphatic: Reports systems reviewed and no addt'l complaints, except as documented Rest 14 ROS are negative except as mentioned in HPI Vital Signs Vital Signs Vital Signs: 08/02/21 14:43 Temperature 98.2 F Temperature Source Temporal Pulse Rate 89 Respiratory Rate 14 Blood Pressure 118/87 H Blood Pressure Mean 97 Pulse Ox 99 Oxygen Delivery Method Room Air Weight Weight: 181 lb 7.047 oz Body Mass Index (BMI) 31.1 Physical Exam Narrative General: Alert, Oriented x3, Cooperative HEENT: Atraumatic, PERRLA, EOMI, Normocephalic Oral: No Gingival or Mucosal Lesions/ Ulcerations Neck: Supple, No JVD, Negative Carotid Bruits Lungs: Air entry diminished in bilateral lung bases. No crepitation/rhonchi Cardiovascular: Regular rate, Regular Rhythm, Normal S1, Normal S2, No murmurs Abdomen: Bowel Sounds Present, Soft, Non Tender, Non-Distended : No renal angle tenderness. No suprapubic tenderness. Extremities: No edema, Capillary Refill Less than 3 Seconds Skin: No rashes, No breakdown Musculoskeletal: No Tenderness to Palpation of Joints or Extremities Neurological: Cranial nerves II-XII grossly intact, DTR 2+/4 and Symmetrical, Neuro grossly intact Psych/Mental Status: Hyperactive, mildly impulsive. No tremor Assessment & Plan Assessment/Plan (1) Opioid use with withdrawal: PLAN: 1. Mild acute opioid withdrawal disorder with history of chronic opioid use and dependence: Patient is being admitted on Medr floor. Started on buprenorphine based other adjunctive medications. For control of withdrawal symptoms. COWS and CINA score. 180 foster care case manager consult. 2. Polysubstance use disorder: Patient also takes amphetamine probably crack cocaine. Patient did not know exact contents. 3. Chronic bipolar disorder: Continue patient's lamotrigine and gabapentin. Patient had history of one-time seizure in remote past. 4. Chronic hepatitis C status post treatment: Patient completed treatment, [facility] for chronic fallacy in senior living. 5. Chronic nicotine use/smoking: Patient still smokes a pack per day. Nicotine patch ordered. 6. Other chronic comorbidities include chronic anemia: Labs ordered. Pending. Urine for ordered CODE STATUS full Charges/Coding Visit Charges Inpatient E&M: 04060 Init Hosp L3
[2021-08-02 15:56] LABS: Bacteria 0 SEEN /hpf (None Seen); Red Blood Cells-Urine 0 SEEN /hpf (0-5); White Blood Cells 0 SEEN /hpf (0-5)
[2021-08-02 16:01] LABS: Absolute Lymphocyte Count 2.44 X10^3/uL (0.83-4.51); Absolute Neutrophil Count 4.6 X10^3/uL (2.0-7.7); Basophil# 0.06 X10^3/uL; Basophil% 0.8 % (0-1); Eosinophil# 0.25 X10^3/uL; Eosinophils% 3.2 % (0-5); Hematocrit 40.1 % (37-47); Hemoglobin 13.7 g/dL (12.0-15.0); Lymphocyte # 2.44 X10^3/ul (0.83-4.51); Lymphocyte % 31.2 % (19-41); Mean Corp Hgb Conc 34.2 g/dL (32-36); Mean Corpuscular Hgb 30.2 pg (27.0-32.0); Mean Corpuscular Volume 88.3 fL (81-99); Mean Platelet Vol. 9.9 fl (6.2-12.0); Monocyte# 0.46 X10^3/uL; Monocyte% 5.9 % (0-10); NRBC Flagged by Analyzer 0 % (0-5); Neutrophil % 58.8 % (47-70); Platelet Count 337 K/mm3 (150-450); RBC Distribution Width CV 12.9 % (11.6-14.6); RBC Distribution Width SD 41.5 fl (35.1-43.9); Red Blood Count 4.54 M/mm3 (4.2-5.4); White Blood Count 7.8 K/mm3 (4.4-11.0)
--- NOTE | 2021-08-02 16:02 | NURSING ---
MED SURG [facility] OPIOID DETOX
[2021-08-02 16:10] LABS: International Normalized Ratio 0.9; Prothrombin Time (Protime)PT. 12.2 SECONDS (11.7-14.9)
[2021-08-02 16:18] LABS: Color, Urine Yellow (Yellow); Glucose, Dipstick Normal (Normal); Ketone-Dipstick Negative (Negative); Leukocyte Esterase-Dipstick Negative /ul (Negative); Nitrite-Dipstick Negative (Negative); Occult Blood-Urine 10 /ul (Negative); Protein-Dipstick 30 mg/dl (Negative); Specific Gravity, Urine 1.025 (1.002-1.030); Urine Clarity Clear (Clear); Urine Urobilinogen Normal (Normal)
[2021-08-02 16:20] LABS: Urine Bilirubin Dipstick 1 mg/dL (Negative)
[2021-08-02 16:22] LABS: AST(SGOT) 31 U/L (15-37); Alanine Aminotransfer ALT/SGPT 36 U/L (13-56); Albumin, Serum 3.5 g/dL (3.2-5.0); Alkaline Phosphatase 51 U/L (45-117); Anion Gap 5 (5-15); BUN 5 mg/dL (7-18); BUN/Creat Ratio 5.7 RATIO (10-20); Calcium,Total 8.9 mg/dL (8.5-10.1); Chloride 99 mmol/L (98-107); Creatinine, Serum 0.88 mg/dL (0.55-1.02); EST Glomerular Filtration Rate 79 mL/min (>60); Est Glom Filt Rate - Afr Amer 96 mL/min (>60); Estimated Creatinine Clearance 79.99 ml/min; Globulin 3.5 g/dL (2.2-4.2); Glucose 116 mg/dL (74-106); Potassium 2.8 mmol/L (3.5-5.1); Sodium Level 137 mmol/L (136-145)
[2021-08-02 16:26] LABS: Mucous, Urine 1+ /hpf (<or=2+); Squamous Epithelial Cells - UA 0-5 SEEN /hpf (5-10)
[2021-08-02 16:27] LABS: Calcium Oxalate Crystals Ur 1+ /hpf (<or=2+); Internal QC Validated? YES +Cl - CLEAR BKGD; Pregnancy, Urine Negative Negative
[2021-08-02 16:30] LABS: Amphetamine Urine VISTA POSITIVE (<1000 ng/mL); Barbiturate Urine VISTA NEGATIVE (< 200 ng/mL); Benzodiazepine Urine VISTA NEGATIVE (< 200 ng/mL); Cocaine Urine VISTA NEGATIVE (< 300 ng/mL); Ecstacy Urine VISTA POSITIVE (< 500 ng/mL); Methadone Urine VISTA NEGATIVE (< 300 ng/mL); PCP Urine VISTA NEGATIVE (< 25 ng/mL); THC Urine VISTA NEGATIVE (< 50 ng/mL); Vista UDS pH Range 6
[2021-08-02 16:40] VITALS: BP 122/84; PULSE 68; RESP 16; TEMP 37.1; O2SAT 95
[2021-08-02 17:13] VITALS: BMI 31.1
[2021-08-02 17:15] VITALS: BP 108/60; PULSE 65; RESP 16; TEMP 36.4; O2SAT 98
[2021-08-02] MEDS: Gabapentin 800 MG Tablet PO ×2 (17:58→22:53)
[2021-08-02 22:23] LABS: Magnesium 2.1 mg/dL (1.6-2.6)
[2021-08-02] MEDS: Potassium Chloride Oral Tablet 20 MEQ 40 MEQ PO (22:54)
[2021-08-02] MEDS: Ibuprofen 600 MG Tablet PO (22:59)
[2021-08-02 23:15] VITALS: BP 111/78; PULSE 95; RESP 16; TEMP 36.7; O2SAT 97
[2021-08-03] MEDS: Mupirocin Ointment 22gm Tube 1 APPLIC TOPICAL ×4 (00:55→22:44)
[2021-08-03 06:00] LABS: AST(SGOT) 25 U/L (15-37); Alanine Aminotransfer ALT/SGPT 29 U/L (13-56); Albumin, Serum 2.9 g/dL (3.2-5.0); Alkaline Phosphatase 42 U/L (45-117); Anion Gap 5 (5-15); BUN 4 mg/dL (7-18); BUN/Creat Ratio 5.7 RATIO (10-20); Calcium,Total 8.9 mg/dL (8.5-10.1); Chloride 105 mmol/L (98-107); EST Glomerular Filtration Rate 104 mL/min (>60); Est Glom Filt Rate - Afr Amer 125 mL/min (>60); Estimated Creatinine Clearance 100.55 ml/min; Globulin 2.9 g/dL (2.2-4.2); Glucose 100 mg/dL (74-106); Potassium 3.5 mmol/L (3.5-5.1); Protein, Total 5.8 g/dL (6.4-8.2); Sodium Level 140 mmol/L (136-145)
[2021-08-03] MEDS: Gabapentin 800 MG Tablet PO ×3 (06:09→22:44)
[2021-08-03 06:12] VITALS: BP 104/71; PULSE 71; RESP 16; TEMP 36.5; O2SAT 96
[2021-08-03] MEDS: Potassium Chloride Oral Tablet 20 MEQ 40 MEQ PO (10:43)
[2021-08-03 10:48] VITALS: BP 115/79; PULSE 82; RESP 18; TEMP 36.8; O2SAT 99
[2021-08-03] MEDS: hydrOXYzine PAM 25 MG Capsule 50 MG PO ×2 (11:15→18:23)
[2021-08-03] MEDS: Ibuprofen 600 MG Tablet PO ×2 (11:15→19:41)
[2021-08-03] MEDS: Dicyclomine 10 MG Capsule 20 MG PO ×2 (11:16→18:22)
[2021-08-03] MEDS: Buprenorphine HCl 2 MG TAB.SUBL 4 MG SL ×2 (12:09→19:39)
--- NOTE | 2021-08-03 12:41 | ADDICTION ---
This assembly instructions writer met with PT to conduct ASAM, MSE, AUDIT, DUDIT assessments and to plan for d/c. PT A+Ox4 and participated actively. All assessments completed, faxed to [facility] and placed in PT's chart. PT plans to f/u with the [facility] at [facility] for follow-up treatment services. PT did not indicate a need for transportation post d/c from [facility].
--- NOTE | 2021-08-03 15:09 | PN.HOSP_ITS ---
Subjective Subjective Follow-up for opioid use disorder. Tox was positive of amphetamine and ecstasy, MDMA Objective Data Objective Data Vital Signs: Vital Signs Temp Pulse Resp BP Pulse Ox O2 Del Method 98.2 F 82 18 115/79 99 Room Air 08/03/21 10:48 08/03/21 10:48 08/03/21 10:48 08/03/21 10:48 08/03/21 10:48 08/03/21 10:48 Oxygen Delivery Method Room Air Weight: 181 lb 8 oz Body Mass Index (BMI) 31.1 Intake & Output: Intake and Output for Last 24 Hours 08/01/21 08/02/21 08/03/21 23:59 23:59 23:59 Intake Total 640 / 640 Balance 640 / 640 Lab / Micro Data Result Diagrams: 08/02/21 15:10 08/03/21 04:47 Labs: Laboratory Results - last 24 hr 08/02/21 15:10: WBC 7.8, RBC 4.54, Hgb 13.7, Hct 40.1, MCV 88.3, MCH 30.2, MCHC 34.2, RDW Std Deviation 41.5, RDW Coeff of Manjeet 12.9, Plt Count 337, MPV 9.9, Immature Gran % (Auto) 0.100, Neut % (Auto) 58.8, Lymph % (Auto) 31.2, [place] % (Auto) 5.9, Eos % (Auto) 3.2, Baso % (Auto) 0.8, Absolute Neuts (auto) 4.6, Absolute Lymphs (auto) 2.44, Nucleated RBC % 0 08/02/21 15:10: PT 12.2, INR 0.9 08/02/21 15:10: Sodium 137, Potassium 2.8 L, Chloride 99, Carbon Dioxide 33.0 H, Anion Gap 5, BUN 5 L, Creatinine 0.88, Estim Creat Clear Calc 79.99, Est GFR (MDRD) Af Amer 96, Est GFR (MDRD) Non-Af 79, BUN/Creatinine Ratio 5.7 L, Glucose 116 H, Calcium 8.9, Total Bilirubin 0.20, AST 31, ALT 36, Alkaline Phosphatase 51, Total Protein 7.0, Albumin 3.5, Globulin 3.5, Albumin/Globulin Ratio 1.0 08/02/21 15:10: Ethyl Alcohol 10.0 08/02/21 15:10: Magnesium 2.1 08/02/21 15:35: Urine Opiates Screen NEGATIVE, Urine Methadone Screen NEGATIVE, Ur Barbiturates Screen NEGATIVE, Ur Phencyclidine Scrn NEGATIVE, Ur Amphetamines Screen POSITIVE H, MDMA (Ecstasy) Screen POSITIVE H, U Benzodiazepines Scrn NEGATIVE, Urine Cocaine Screen NEGATIVE, U Cannabinoids Screen NEGATIVE, Ur Drug Screen Comment 08/02/21 15:35: Urine Color Yellow, Urine Clarity Clear, Urine pH 6.0, Ur Specific [place] 1.025, Urine Protein 30 H, Urine Glucose (UA) Normal, Urine Ketones Negative, Urine Occult Blood 10 H, Urine Nitrite Negative, Urine Bilirubin 1 H, Urine Urobilinogen Normal, Ur Leukocyte Esterase Negative, Urine RBC 0 SEEN, Urine WBC 0 SEEN, Ur Squamous Epith Cells 0-5 SEEN, Calcium Oxalate Crystal 1+, Urine Bacteria 0 SEEN, Urine Mucus 1+, Urine Test Negative 08/03/21 04:47: Sodium 140, Potassium 3.5, Chloride 105, Carbon Dioxide 30.0, Anion Gap 5, BUN 4 L, Creatinine 0.70, Estim Creat Clear Calc 100.55, Est GFR (MDRD) Af Amer 125, Est GFR (MDRD) Non-Af 104, BUN/Creatinine Ratio 5.7 L, Glucose 100, Calcium 8.9, Total Bilirubin 0.10 L, AST 25, ALT 29, Alkaline Phosphatase 42 L, Total Protein 5.8 L, Albumin 2.9 L, Globulin 2.9, Albumin/Globulin Ratio 1.0 Physical Exam Narrative General: Alert, Oriented x3, Cooperative HEENT: Atraumatic, PERRLA, EOMI, Normocephalic Oral: No Gingival or Mucosal Lesions/ Ulcerations Neck: Supple, No JVD, Negative Carotid Bruits Lungs: Air entry diminished in bilateral lung bases. No crepitation/rhonchi Cardiovascular: Regular rate, Regular Rhythm, Normal S1, Normal S2, No murmurs Abdomen: Bowel Sounds Present, Soft, Non Tender, Non-Distended : No renal angle tenderness. No suprapubic tenderness. Extremities: No edema, Capillary Refill Less than 3 Seconds Skin: No rashes, No breakdown Musculoskeletal: No Tenderness to Palpation of Joints or Extremities Neurological: Cranial nerves II-XII grossly intact, DTR 2+/4 and Symmetrical, Neuro grossly intact Psych/Mental Status: Calm. No hallucination or delusion. Mild anxiety Assessment & Plan Assessment/Plan (1) Opioid use with withdrawal: PLAN: 1. Mild acute opioid withdrawal disorder with history of chronic opioid use and dependence: Patient is being admitted on MedSurg floor. Started on buprenorphine based other adjunctive medications. For control of withdrawal symptoms. COWS and CINA score. 180 assistant case manager consult. 08/03: Hypokalemia, potassium is getting monitored and replaced. Serum magnesium level normal. 2. Polysubstance use disorder: Patient also takes amphetamine probably crack cocaine. Patient did not know exact contents. Patient did not know that she is taking MDMA probably mixed with the amphetamine/opioids 3. Chronic bipolar disorder: Continue patient's lamotrigine and gabapentin. Patient had history of one-time seizure in remote past. 4. Chronic hepatitis C status post treatment: Patient completed treatment, [facility] for chronic fallacy in custodial. 5. Chronic nicotine use/smoking: Patient still smokes a pack per day. Nicotine patch ordered. 6. Other chronic comorbidities include chronic anemia: Labs ordered. Pending. Urine for ordered CODE STATUS full Laboratory Results 08/02/21 15:10: WBC 7.8, RBC 4.54, Hgb 13.7, Hct 40.1, MCV 88.3, MCH 30.2, MCHC 34.2, RDW Std Deviation 41.5, RDW Coeff of Manjeet 12.9, Plt Count 337, MPV 9.9, Immature Gran % (Auto) 0.100, Neut % (Auto) 58.8, Lymph % (Auto) 31.2, [place] % (Auto) 5.9, Eos % (Auto) 3.2, Baso % (Auto) 0.8, Absolute Neuts (auto) 4.6, Absolute Lymphs (auto) 2.44, Nucleated RBC % 0 08/02/21 15:10: PT 12.2, INR 0.9 08/02/21 15:10: Sodium 137, Potassium 2.8 L, Chloride 99, Carbon Dioxide 33.0 H, Anion Gap 5, BUN 5 L, Creatinine 0.88, Estim Creat Clear Calc 79.99, Est GFR (MDRD) Af Amer 96, Est GFR (MDRD) Non-Af 79, BUN/Creatinine Ratio 5.7 L, Glucose 116 H, Calcium 8.9, Total Bilirubin 0.20, AST 31, ALT 36, Alkaline Phosphatase 51, Total Protein 7.0, Albumin 3.5, Globulin 3.5, Albumin/Globulin Ratio 1.0 08/02/21 15:10: Ethyl Alcohol 10.0 08/02/21 15:10: Magnesium 2.1 08/02/21 15:35: Urine Opiates Screen NEGATIVE, Urine Methadone Screen NEGATIVE, Ur Barbiturates Screen NEGATIVE, Ur Phencyclidine Scrn NEGATIVE, Ur Amphetamines Screen POSITIVE H, MDMA (Ecstasy) Screen POSITIVE H, U Benzodiazepines Scrn NEGATIVE, Urine Cocaine Screen NEGATIVE, U Cannabinoids Screen NEGATIVE, Ur Drug Screen Comment 08/02/21 15:35: Urine Color Yellow, Urine Clarity Clear, Urine pH 6.0, Ur Specific [place] 1.025, Urine Protein 30 H, Urine Glucose (UA) Normal, Urine Ketones Negative, Urine Occult Blood 10 H, Urine Nitrite Negative, Urine Bilirubin 1 H, Urine Urobilinogen Normal, Ur Leukocyte Esterase Negative, Urine RBC 0 SEEN, Urine WBC 0 SEEN, Ur Squamous Epith Cells 0-5 SEEN, Calcium Oxalate Crystal 1+, Urine Bacteria 0 SEEN, Urine Mucus 1+, Urine Test Negative 08/03/21 04:47: Sodium 140, Potassium 3.5, Chloride 105, Carbon Dioxide 30.0, Anion Gap 5, BUN 4 L, Creatinine 0.70, Estim Creat Clear Calc 100.55, Est GFR (MDRD) Af Amer 125, Est GFR (MDRD) Non-Af 104, BUN/Creatinine Ratio 5.7 L, Glucose 100, Calcium 8.9, Total Bilirubin 0.10 L, AST 25, ALT 29, Alkaline Phosphatase 42 L, Total Protein 5.8 L, Albumin 2.9 L, Globulin 2.9, Albumin/Globulin Ratio 1.0 Charges/Coding Visit Charges Inpatient E&M: 09055 Subs Hosp L2
[2021-08-03] MEDS: Acetaminophen 500 MG Tablet PO (15:40)
[2021-08-03 15:47] VITALS: BP 106/67; PULSE 65; RESP 18; TEMP 36.5; O2SAT 94
[2021-08-03 21:00] VITALS: BP 124/78; PULSE 75; RESP 16; TEMP 37.1; O2SAT 98
[2021-08-04] MEDS: Acetaminophen 500 MG Tablet PO (02:03)
[2021-08-04] MEDS: Buprenorphine HCl 2 MG TAB.SUBL 4 MG SL (03:14)
[2021-08-04] MEDS: Ibuprofen 600 MG Tablet PO (03:14)
[2021-08-04 03:28] VITALS: BP 128/79; PULSE 70; RESP 16; TEMP 36.8; O2SAT 97
[2021-08-04] MEDS: Mupirocin Ointment 22gm Tube 1 APPLIC TOPICAL (06:25)
[2021-08-04] MEDS: Gabapentin 800 MG Tablet PO (06:25)
[2021-08-04] MEDS: Potassium Chloride Oral Tablet 20 MEQ 40 MEQ PO (10:41)
--- NOTE | 2021-08-04 11:12 | NURSING ---
This nurse to see pt at 1040am. Pt was in the bathroom urinating. This nurse Asked her how her day was going. Pt showed signs of restlessness, high anxiety, agitation. Pt took her scheduled meds and then asked, what time is my subutex due. This nurse explained it could be given at 1100 this morning. Pt walked to the window and said, Fuck it go tell the doctor I'm leaving. I can go get suboxone off the street Pt looking out window and avoiding contact. Pt repeated again to go tell the doctor i'm leaving. This nurse called Carin our detox coordinator and informed her. This nurse attempted to get pt to stay but pt states I'm going to [place], At least there you can talk to people and go smoke outside. This nurse then went to get the AMA paper, pt signing it and stated, I'm going to go to [address] with [address] Cisneros, she knows me. This nurse informed Carin of this as well. Pt refused for this nurse to get vital Signs and perform an assessment on her as she was not willing to wait.
--- NOTE | 2021-08-04 12:34 | PCM.DC.SUM ---
Providers Date of Admission: 08/02/21 Primary Care Physician: Dr. Bonnie Cheema MD Reason For Visit: OPOID USE DISORDER Diagnosis Discharge Diagnosis (1) Opioid use with withdrawal: Status: Acute Code(s): F11.93 - Opioid use, unspecified with withdrawal Medications at Discharge Home Medications gabapentin 800 mg tablet 800 mg PO TID anxiety 3 months #270 tabs 10/15/20 lamotrigine 200 mg tablet,extended release 24 hr 200 mg PO DAILY #90 tabs 10/15/20 buprenorphine 12 mg-naloxone 3 mg sublingual film (Suboxone) 1 film buccal Q24H 08/02/21 Hospital Course Summary of Care Provided Hospital Course: 1. Mild acute opioid withdrawal disorder with history of chronic opioid use and dependence: Patient is being admitted on Medr floor. Started on buprenorphine based other adjunctive medications. For control of withdrawal symptoms. COWS and CINA score. 180 case management director consult. 08/03: Hypokalemia, potassium is getting monitored and replaced. Serum magnesium level normal. 08/04: Hypokalemia resolved. Patient upset, angry and impulsive. Signed AMA. I tried to reconcile and convince her to stay but she did not have any. She knows the consequences and risks of of signing AMA. 2. Polysubstance use disorder: Patient also takes amphetamine probably crack cocaine. Patient did not know exact contents. Patient did not know that she is taking MDMA probably mixed with the amphetamine/opioids 3. Chronic bipolar disorder: Continue patient's lamotrigine and gabapentin. Patient had history of one-time seizure in remote past. 4. Chronic hepatitis C status post treatment: Patient completed treatment, [facility] for chronic fallacy in long-term. 5. Chronic nicotine use/smoking: Patient still smokes a pack per day. Nicotine patch ordered. 6. Other chronic comorbidities include chronic anemia: Labs ordered. Pending. Urine for ordered CODE STATUS full Signed AMA Physical Exam Narrative Seen and examined on the day of AMA Patient very upset and angry stating that she has been waiting for 2 hours for her buprenorphine medication. I apologized and urged to stay and completed treatment but she decided to go for AMA. She understands the consequences General: Alert, Oriented x3, Cooperative HEENT: Atraumatic, PERRLA, EOMI, Normocephalic Oral: No Gingival or Mucosal Lesions/ Ulcerations Neck: Supple, No JVD, Negative Carotid Bruits Lungs: Air entry diminished in bilateral lung bases. No crepitation/rhonchi Cardiovascular: Regular rate, Regular Rhythm, Normal S1, Normal S2, No murmurs Abdomen: Bowel Sounds Present, Soft, Non Tender, Non-Distended : No renal angle tenderness. No suprapubic tenderness. Extremities: No edema, Capillary Refill Less than 3 Seconds Skin: No rashes, No breakdown Musculoskeletal: No Tenderness to Palpation of Joints or Extremities Neurological: Cranial nerves II-XII grossly intact, DTR 2+/4 and Symmetrical, Neuro grossly intact Psych/Mental Status: Anxious, angry, impulsive. Weight / BMI Weight Weight: 181 lb 8 oz Body Mass Index (BMI) 31.1 ABG / Lab / Microbiology Data Result Diagrams: 08/02/21 15:10 08/03/21 04:47 Meaningful Use Info Meaningful Use Diagnoses (Choose all that apply): None applicable Discharge Plan Admission Admit Date/Time: 08/02/21 15:10 Attending Provider: Adonay Hernández Primary Care Provider: Bonnie Cheema Discharge Orders/Prescriptions Prescriptions: No Action buprenorphine-naloxone [Suboxone] 12-3 mg Film 1 film BUCCAL Q24H gabapentin 800 mg tablet 800 mg PO TID 90 Days Qty: 270 1RF lamotrigine 200 mg tablet extended release 24hr 200 mg PO DAILY Qty: 90 1RF Referrals / Follow Up: Bonnie Cheema MD [Primary Care Provider] - Disposition Disposition (needs filled in before D/C Order can be placed): Against Medical Advice Charges/Coding Visit Charges Inpatient E&M: 41634 Disch Hosp
== END 2021-08-04 11:10 | disposition left against medical advice (07) | DRG 770 ==
LOC: ED 15:03 → MS3 15:33
PROVIDERS: Family Medicine; Admitting Provider Internal Medicine; Emergency Provider Emergency Medicine; PCP Internal Medicine; Visit Provider Internal Medicine
DX: F11.23 Opioid dependence with withdrawal (principal); E87.6 Hypokalemia; F31.9 Bipolar disorder, unspecified; F15.90 Other stimulant use, unspecified, uncomplicated; F17.210 Nicotine dependence, cigarettes, uncomplicated; Z79.899 Other long term (current) drug therapy; Z86.19 Personal history of other infectious and parasitic diseases
CPT/HCPCS: 36415; 80053; 80307; 81001; 81025; 82077; 83735; 85025; 85610; 99283; 99406

== ENCOUNTER 2023-03-02 12:13 | Emergency (ER) | payer MEDICAID, SELFPAY ==
[2023-03-02 12:14] VITALS: BP 126/80; PULSE 111; RESP 20; TEMP 36.1; O2SAT 100; BMI 32.8
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
[2023-03-02] MEDS: 0.9% Normal Saline (1000mL) 1,000 ML 1000 ML IV (13:23)
--- OUTSIDE RECORDS SUMMARY | 2023-03-02 13:28 | XMS RPT_ITS | CCD ---
Author Name Unknown Address [address] [place] [address] Organization [facility] Care Team Providers Care Tourist Cabin Keeper Name Role Phone SEBASTIÁN ZHU Unavailable Unavailable DI SEBASTIÁN STOVALL Unavailable Unavailable FLAHERTY, BREANA (APN) Unavailable Unavaila ble FLAHERTY, BREANA (APN) Unavailable Unavaila ble FLAHERTY, BREANA (APN) Unavailable Unavaila ble FLAHERTY, BREANA (APN) Unavailable Unavaila ble FLAHERTY, BREANA (APN) Unavailable Unavaila ble FLAHERTY, BREANA (APN) Unavailable Unavaila ble FLAHERTY, BREANA (APN) Unavailable Unavaila ble FLAHERTY, BREANA (APN) Unavailable Unavaila ble FLAHERTY, BREANA (APN) Unavailable Unavaila ble FLAHERTY, BREANA (APN) Unavailable Unavaila ble FLAHERTY, BREANA (APN) Unavailable Unavaila ble FLAHERTY, BREANA (APN) Unavailable Unavaila ble FLAHERTY, BREANA (APN) Unavailable Unavaila ble FLAHERTY, BREANA (APN) Unavailable Unavaila ble FLAHERTY, BREANA (APN) Unavailable Unavaila ble FLAHERTY, BREANA (APN) Unavailable Unavaila ble FLAHERTY, BREANA (APN) Unavailable Unavaila ble FLAHERTY, BREANA (APN) Unavailable Unavaila ble FLAHERTY, BREANA (APN) Unavailable Unavaila ble FLAHERTY, BREANA (APN) Unavailable Unavaila brandy MRAIE SEBASTIÁN L Unavailable Unavailable FRANK SEBASTIÁN L Unavailable Unavailable [facility] Unavailable Unavailable FLAHERTY, BREANA M Unavailable Unavailable FLAHERTY, BREANA M Unavailable Unavailable FLAHERTY, BREANA M Unavailable Unavailable FLAHERTY, BREANA M Unavailable Unavailable FLAHERTY, BREANA M Unavailable Unavailable FLAHERTY, BREANA M Unavailable Unavailable [facility] Unavailable Unavailable FLAHERTY, BREANA M Unavailable Unavailable [facility] Unavailable Unavailable [facility] Unavailable Unavailable FLAHERTY, BREANA M Unavailable Unavailable FLAHERTY, BREANA M Unavailable Unavailable FLAHERTY, BREANA M Unavailable Unavailable [facility] Unavailable Unavailable FLAHERTY, BREANA M Unavailable Unavailable [facility] Unavailable Unavailable FLAHERTY, BREANA M Unavailable Unavailable [facility] Unavailable Unavailable FLAHERTY, BREANA M Unavailable Unavailable FLAHERTY, BREANA M Unavailable Unavailable FLAHERTY, BREANA M Unavailable Unavailable FLAHERTY, BREANA M Unavailable Unavailable FLAHERTY, BREANA M Unavailable Unavailable FLAHERTY, BREANA M Unavailable Unavailable FLAHERTY, BREANA M Unavailable Unavailable [facility] Unavailable Unavailable FLAHERTY, BREANA M Unavailable Unavailable FLAHERTY, BREANA M Unavailable Unavailable [facility] Unavailable Unavailable [facility] Unavailable Unavailable [facility] Unavailable Unavailable FLAHERTY, BREANA M Unavailable Unavailable FLAHERTY, BREANA M Unavailable Unavailable FLAHERTY, BREANA M Unavailable Unavailable [facility] Unavailable Unavailable FLAHERTY, BREANA M Unavailable Unavailable FLAHERTY, BREANA M Unavailable Unavailable FLAHERTY, BREANA M Unavailable Unavailable FLAHERTY, BREANA M Unavailable Unavailable FLAHERTY, BREANA M Unavailable Unavailable FLAHERTY, BREANA M Unavailable Unavailable [facility] Unavailable Unavailable FLAHERTY, BREANA M Unavailable Unavailable FLAHERTY, BREANA M Unavailable Unavailable FLAHERTY, BREANA M Unavailable Unavailable FLAHERTY, BREANA M Unavailable Unavailable FLAHERTY, BREANA M Unavailable Unavailable [facility] Unavailable Unavailable FLAHERTY, BREAAN M Unavailable Unavailable FLAHERTY, BREANA M Unavailable Unavailable FLAHERTY, BREANA M Unavailable Unavailable [facility] Unavailable Unavailable FLAHERTY, BREANA M Unavailable Unavailable FLAHERTY, BREAAN M Unavailable Unavailable FLAHERTY, BREANA M Unavailable Unavailable FLAHERTY, BREANA M Unavailable Unavailable [facility] Unavailable Unavailable [facility] Unavailable Unavailable FLAHERTY, BREANA M Unavailable Unavailable [facility] Unavailable Unavailable [facility] Unavailable Unavailable FLAHERTY, BREANA M Unavailable Unavailable DHIMAR SUZIE Unavailable Unavailable Josefina Victor Unavailable Unavailable Josefina Victor Unavailable Unavailable Kristofer Mendez Unavailable Unavailable Josefina Victor Primary Care Provider [phone] Josefina Victor MD Primary Care Provider Josefina Victor MD Primary Care Provider JUS RHODES Attending Unavailable MARIO ROBERTS Attending Unavailable No, Pcp Primary Care Provider Unavailabl e Medications Current Medications Medication Drug Class(es) Dates Sig (Normalized) Sig (Original) acetaminophen 325 mg oral tablet (1 source) Start: 10-03-2018 take 650 mg by mouth every four hours as needed for pain, then take 3000 mg by mouth every twenty-four hours as needed for pain 650 mg, Oral, EVERY 4 HOURS PRN, Pain Mild (1-3), Fever, Fever >100.5 F (38 C), Starting Gosia 10/03/18 at 0103 Maximum dose of acetaminophen is 3000 mg from all sources in 24 hours. apixaban 5 mg oral tablet (3 sources) Factor Xa Inhibitor Start: 01-25-2022 take 1 tablet by mouth twice daily apixaban (Eliquis) 5 MG tablet Take 1 tablet (5 mg) by mouth 2 times daily. 60 tablet 0 01/25/2022 Active buprenorphine 8 mg sublingual tablet (5 sources) Partial Opioid Agonist Start: 10-05-2018 End: 10-11-2018 buprenorphine (SUBUTEX) 8 MG SUBL SL tablet Indications: Severe opioid use disorder (HCC) Place 1 tablet under the tongue daily for 6 days. 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; Translations: [Cerebral embolism without mention of cerebral infarction] Onset: 01-31-2022 Chronic Anxiety disorders (10 sources) Anxiety disorder, unspecified; Translations: [Anxiety] Onset: 07-07-2015 02-01-2016 Chronic Cardiac and circulatory congenital anomalies (3 sources) Patent foramen ovale; Translations: [Patent foramen ovale] Onset: 01-31-2022 01-31-2022 Chronic Epilepsy; convulsions (9 sources) Seizure disorder; Translations: [Epilepsy, unspecified, not intractable, without status epilepticus] Onset: 07-07-2015 02-01-2016 Chronic Mood disorders (10 sources) Bipolar disorder, unspecified; Translations: [Bipolar I disorder] Onset: 07-07-2015 02-01-2016 Chronic Other circulatory disease (2 sources) Idiopathic hypotension; Translations: [Idiopathic hypotension] Onset: 01-31-2022 Episodic Other circulatory disease (3 sources) Idiopathic hypotension; Translations: [Idiopathic hypotension] Onset: 01-31-2022 01-31-2022 Episodic Poisoning by other medications and drugs (2 sources) Poisoning by other opioids, accidental (unintentional), initial encounter; Translations: [Poisoning by other opioids, accidental (unintentional), initial encounter ([facility])] Onset: 02-03-2022 Episodic Poisoning by other medications and drugs (3 sources) Poisoning by unspecified drugs, medicaments and biological substances, accidental (unintentional), initial encounter; Translations: [Poisoning by unspecified drugs, medicaments and biological substances, accidental (unintentional), initial encounter] Onset: 10-18-2016 Residual codes; unclassified (2 sources) Tobacco user; Translations: [Tobacco abuse] Onset: 07-07-2015 07-07-2015 Chronic Substance-related disorders (20 sources) Opioid dependence, uncomplicated; Translations: [Other stimulant use, unspecified, uncomplicated] Onset: 07-07-2015 02-14-2016 Chronic Unclassified (1 source) Unknown / UNK(Unknown) Onset: 11-01-2016 Past or Other Problems Problem Classification Problem Date Documented Da te Episodic/Chronic Administrative/social admission (8 sources) Homeless; Translations: [Homelessness] Onset: 10-03-2018 10-03-2018 Episodic Hepatitis (10 sources) Unspecified viral hepatitis C without hepatic coma; Translations: [Viral hepatitis C] Onset: 11-23-2015 02-01-2016 Episodic Malposition; malpresentation (8 sources) Transverse lie; Translations: [Maternal care for transverse and oblique lie, not applicable or unspecified] Onset: 02-01-2016 02-01-2016 Episodic Other complications of (8 sources) High risk ; Translations: [Supervision of high risk , unspecified, unspecified trimester] Onset: 07-07-2015 02-14-2016 Episodic Other complications of (6 sources) Hemorrhoids in ; Translations: [Hemorrhoids in , unspecified trimester] Onset: 01-10-2016 Resolved: 02-14-2016 02-14-2016 Episodic Other complications of (8 sources) Maternal tobacco use; Translations: [Smoking (tobacco) complicating , second trimester] Onset: 10-03-2018 10-03-2018 Episodic Other female genital disorders (2 sources) Personal history of cervical dysplasia; Translations: [Personal history of cervical dysplasia] Onset: 10-18-2016 Episodic Other nervous system disorders (2 sources) Personal history of other diseases of the nervous system and sense organs; Translations: [Personal history of dis of the nervous sys and sense organs] Onset: 10-18-2016 Episodic Residual codes; unclassified (6 sources) Tobacco user; Translations: [Tobacco use] Onset: 07-07-2015 07-07-2015 Episodic Substance-related disorders (19 sources) Maternal drug use; Translations: [Substance abuse] Onset: 07-07-2015 10-03-2018 Episodic Unclassified (1 source) CHEMICAL DEPENDENCY Onset: 11-01-2016 Urinary tract infections (1 source) Urinary tract infection, site not specified; Translations: [Urinary tract infection, site not specified] Onset: 04-15-2017 Episodic Results Test Name Value Interpretation Reference Range Facil ity Vital Signs Date Time Vital Sign Value Performing Clinician Faci lity 10-06-2018 20:02-0400 Body Temperature 99.19 [degF] [place], [place] 10-06-2018 20:02-0400 BP Diastolic 60 mm[Hg] [place] 10-06-2018 20:02-0400 BP Systolic 98 mm[Hg] [place] 10-06-2018 20:02-0400 Pulse (Heart Rate) 61 /min [place] 10-06-2018 20:02-0400 Pulse Oximetry 97 % [place] 10-06-2018 20:02-0400 Respiratory Rate 16 /min [facility], [place] 10-03-2018 06:12-0400 BMI (Body Mass Index) 26.57 kg/m2 [facility] 10-03-2018 06:12-0400 Body weight 68.[address] [facility] , [place] 10-03-2018 06:12-[address] [facility] [place] 09-23-2018 12:39-0400 BP Diastolic 64 mm[Hg] Josefina Stoutard [place], [place] 09-23-2018 12:39-0400 BP Systolic 101 mm[Hg] [place], [place] 09-23-2018 12:39-0400 Pulse (Heart Rate) 60 /min [place], [place] 09-23-2018 12:39-0400 Pulse Oximetry 97 % [place], [place] 09-23-2018 12:39-0400 Respiratory Rate 16 /min [place], [place] 09-23-2018 11:35-0400 BMI (Body Mass Index) 26.57 kg/m2 [place] 09-23-2018 11:35-0400 Body Temperature 98.2 [degF] [place], [place] 09-23-2018 11:35-0400 Body weight 68.04 kg [place], [place] 09-23-2018 11:35-0400 Height 160 cm [place] Encounters Encounter Date Encounter Type Care Provider Facility Start: 04-25-2022 Telephone encounter Shilpi Vieira RN [facility] 3W TELEMETRY Procedures Date Procedure Procedure Detail Performing Clinician Start: 10-03-2018 Tb cell mediated ant ign respnse gamma interferon [place] Work Phone: Start: 10-03-2018 Us preg uterus after 1st trimest 02/05 gestation Bre Aparicio Work Phone: Start: 10-03-2018 Drug screen, single Treasure Aparicio Work Phone: Start: 10-03-2018 Antibody hiv-1&hiv-2 single result Bre Aparicio Work Phone: Start: 10-03-2018 Blood count complete auto&auto difrntl wbc Bre Aparicio Work Phone: Start: 10-03-2018 Blood typing serologic abo Bre Aparicio Work Phone: Start: 10-03-2018 Comprehensive metabo lic panel Bre Aparicio Work Phone: Start: 10-03-2018 Iaad ia hepatitis b surface antigen Bre Aparicio Work Phone: Start: 10-03-2018 Iadna 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 Start: 05-08-2022 End: 05-08-2022 Patient encounter procedure 05/08/2022 Office Visit Internal Medicine Jus Rhodes MD [address] [place], [place] [id number] [facility] Internal [facility] [place] Start: 04-18-2022 End: 04-18-2022 Patient encounter procedure 04/18/2022 Office Visit Neurology April Sharma, EXPLOSIVE ORDNANCE MANAGER - APN [address] [place], [place] [id number] [facility] Endovascular Neurosurgery Start: 10-06-2021 Influenza vaccination Influenza Vaccine (#1) [facility] Start: 06-30-2021 End: 06-30-2021 Patient encounter procedure 06/30/2021 Appointment Psychiatry Marii Pro, [facility] [address] [place] [address] [facility] Start: 06-28-2021 End: 06-28-2021 Patient encounter procedure 06/28/2021 Appointment Psychiatry Marii Pro [facility] [address] [place] [address] [facility] Start: 06-27-2021 End: 06-27-2021 Patient encounter procedure 06/27/2021 Appointment Psychiatry Marii Pro, [facility] [address] [place] [address] [facility] Start: 06-23-2021 End: 06-23-2021 Patient encounter procedure 06/23/2021 Appointment Psychiatry Marii Pro, [facility] [address] [place] [address] [facility] Start: 06-21-2021 End: 06-21-2021 Patient encounter procedure 06/21/2021 Appointment Psychiatry Marii Pro, [facility] [address] [place] [address] [facility] Start: 06-20-2021 End: 06-20-2021 Patient encounter procedure 06/20/2021 Appointment Psychiatry Marii Pro, [facility] [address] [place] [address] [facility] Start: 06-16-2021 End: 06-16-2021 Patient encounter procedure 06/16/2021 Appointment Psychiatry Marii Pro, [facility] [address] [place] [address] [facility] Start: 06-14-2021 End: 06-14-2021 Patient encounter procedure 06/14/2021 Appointment Psychiatry Marii Pro [facility] [address] [place] [address] [facility] Start: 06-13-2021 End: 06-13-2021 Patient encounter procedure 06/13/2021 Appointment Psychiatry Marii Pro [facility] [address] [place] [address] [facility] Start: 06-09-2021 End: 06-09-2021 Patient encounter procedure 06/09/2021 Appointment Psychiatry Marii Pro [facility] [address] [place] [address] [facility] Start: 06-07-2021 End: 06-07-2021 Patient encounter procedure 06/07/2021 Appointment Psychiatry Marii Pro [facility] [address] [place] [address] [facility] Start: 06-06-2021 End: 06-06-2021 Patient encounter procedure 06/06/2021 Appointment Psychiatry Marii Pro [facility] [address] [place] [address] [facility] Start: 06-02-2021 End: 06-02-2021 Patient encounter procedure 06/02/2021 Appointment Psychiatry Marii Pro [facility] [address] [place] [address] [facility] Start: 05-31-2021 End: 05-31-2021 Patient encounter procedure 05/31/2021 Appointment Psychiatry Marii Pro [facility] [address] [place] [address] [facility] Start: 05-30-2021 End: 05-30-2021 Patient encounter procedure 05/30/2021 Appointment Psychiatry Marii Pro [facility] [address] [place] [facility] [place] [address] [facility] Start: 05-26-2021 End: 05-26-2021 Patient encounter procedure 05/26/2021 Appointment Psychiatry Marii Pro [facility] [address] [place] [address] [facility] Start: 05-24-2021 End: 05-24-2021 Patient encounter procedure 05/24/2021 Appointment Psychiatry Marii Pro [facility] [address] [place] [address] [facility] Start: 05-23-2021 End: 05-23-2021 Patient encounter procedure 05/23/2021 Appointment Psychiatry Marii Pro [facility] [address] [place] [facility] [place] [address] [facility] Start: 05-19-2021 End: 05-19-2021 Patient encounter procedure 05/19/2021 [facility] [address] [place] [address] [facility] Start: 05-17-2021 End: 05-17-2021 Patient encounter procedure 05/17/2021 App[facility] Mari[facility], [facility] [address] [place] [address] [facility] Start: 05-16-2021 End: 05-16-2021 Patient encounter procedure 05/16/2021 [facility] Mari[facility] [address] [place] [address] [facility] Start: 05-13-2021 End: 05-13-2021 Patient encounter procedure 05/13/2021 [facility] [address] [place] [address] [facility] Start: 05-12-2021 End: 05-12-2021 Patient encounter procedure 05/12/2021 [facility] Mari[facility] [address] [place] [address] [facility] Start: 05-10-2021 End: 05-10-2021 Patient encounter procedure 05/10/2021 [facility] Mari[facility] [address] [place] [address] [facility] Start: 05-09-2021 End: 05-09-2021 Patient encounter procedure 05/09/2021 App[facility] Mari[facility] [address] [place] [address] [facility] Start: 05-05-2021 End: 05-05-2021 Patient encounter procedure 05/05/2021 Appointment Psychiatry Marii Pro, [facility] [address] [place] [address] [facility] Start: 09-01-2021 Influenza vaccination Flu vaccine (#1) [facility] Start: 12-23-2019 Screening for malignant neoplasm of cervix [facility] Start: 04-04-2019 Varicella vaccination Varicella Vaccines (1 of 2 - 2-dose childhood series) [facility] Start: 10-06-2018 Influenza vaccination Flu vaccine (#1) [place], [place] Start: 2010 Cervical cancer screen Cervical cancer screen [place], [place] Start: 2010 Screening for malignant neoplasm of cervix Pap smear [facility] Start: 2008 DTaP/Tdap/Td vaccine (1 - Tdap) DTaP/Tdap/Td vaccine (1 - Tdap) [facility] Start: 2008 DTaP/Tdap/Td Vaccines (1 - Tdap) DTaP/Tdap/Td Vaccines (1 - Tdap) [facility] Start: 2002 Varicella Vaccine (1 of 2 - 13+ 2-dose series) Varicella Vaccine (1 of 2 - 13+ 2-dose series) [place], [place] Start: 2001 Depression Monitoring Depression Monitoring [facility] Start: 12-23-1995 Pneumococcal 0-64 years Vaccine (1 of 1 - PPSV23) Pneumococcal 0-64 years Vaccine (1 of 1 - PPSV23) [place] Start: 12-23-1995 Pneumococcal 0-64 years Vaccine (1 of 2 - PPSV23) Pneumococcal 0-64 years Vaccine (1 of 2 - PPSV23) [facility] Start: 1994 COVID-19 Vaccine (1) COVID-19 Vaccine (1) [facility] Start: 1990 Hepatitis A Vaccines (1 of 2 - Risk 2-dose series) Hepatitis A Vaccines (1 of 2 - Risk 2-dose series) [facility] Start: 1990 Varicella vaccine (1 of 2 - 2-dose childhood series) Varicella vaccine (1 of 2 - 2-dose childhood series) [facility] Start: 06-21-1990 COVID-19 Vaccine (#1) COVID-19 Vaccine (#1) [facility] Start: 1989 Hepatitis B Vaccines (1 of 3 - 3-dose series) Hepatitis B Vaccines (1 of 3 - 3-dose series) [facility] End: 10-03-2018 Fentanyl, Urine Fentanyl, Urine Lab Add-On One Time for 1 Occurrences starting 10/03/2018 until 10/03/2018 [place], [place] Immunizations Immunization Date Immunization Notes Care Provider Radha mendoza 12-05-2018 influenza virus vaccine, unspecified formulation April Garg CNP Work Phone: [facility] NEGATED: Highlighted row has not occurred!10-03-2018 tuberculin skin test; purified protein derivative solution, intradermal Enrico Nieto [facility] Payers Date Payer Category Payer Medicaid [id number] 2014 Unknown xxxxxxxxxxxx [id number] Unknown Social History Date Type Detail Facility Start: 07-08-2015 End: 09-23-2018 Tobacco smoking status NHIS Current every day smoker [place], [place] History of tobacco use Cigarette Smoker [place] Start: 07-08-2015 End: 09-23-2018 Cigarettes smoked current (pack per day) - Reported [place] Start: 09-23-2018 End: 10-03-2018 Alcohol intake No [place] Start: 1989 Sex Assigned At Not on file [place] Start: 06-02-2018 [place] Start: 07-08-2015 End: 01-31-2022 Tobacco use and exposure Smokeless tobacco non-user [facility] Work Phone: Start: 04-08-2021 Alcohol intake Current non-dr java lead of alcohol (finding) [facility] Work Phone: Start: 01-31-2022 Tobacco smoking stat us [place]IS Never smoked tobacco [facility] Start: 02-09-2022 Alcohol intake Ex-drinker (finding) [facility] Start: 02-03-2022 History SDOH Alcohol Frequency [address] [facility] Start: 02-03-2022 History SDOH Alcohol Std Drinks [address] [facility] Medical Equipment Procedure Code Equipment Code Equipment Origin al Text Equipment Identifier Dates Coil Embolizatio n Micro Complex Framing Standard 0.02in Od 10mm Dominique 35cml Curyung Nitinol Wire Peripheral Detachable Resheathable Catie Latex-Free Mri - [id number] Start: 01-23-2022 Device Closure Angio-Seal Vip Bondek-Plus Polyglyd L70 Cm Od8 Fr Odsec.038 In Vascular Hemostatic Bioabsorbable Insertion Sheath Guidewire Sterile Lat - [id number] Start: 01-12-2022 Device Closure Angio-Seal Vip Bondek-Plus Polyglyd L70 Cm Od8 Fr Odsec.038 In Vascular Hemostatic Bioabsorbable Insertion Sheath Guidewire Sterile Lat - [id number] Start: 01-15-2022 Clinical Notes 05-31-2021 to 04-25-2022 Telephone Encounter - Shilpi Vieira RN - 04/25/2022 12:20 PM EDTTelephone Encounter - Shilpi Vieira RN - 04/25/2022 12:20 PM EDTTelephone Encounter - Any Mckeon - 04/17/2022 11:17 AM EDT Note Date & Type Note Facility 04-25-2022 Telephone encounter Note Phone number invalid. [facility] 04-25-2022 Miscellaneous Notes Phone number invalid. documented in this encounter [facility] 04-17-2022 Telephone encounter Note Left message on Father's voice mail requesting return call to confirm appointment tomorrow 04/18/22 at 12:00 with April Sharma. Patient's phone number is not accepting calls [facility] 04-17-2022 Miscellaneous Notes Left message on Father's voice mail requesting return call to confirm appointment tomorrow 04/18/22 at 12:00 with April Sharma. Patient's phone number is not accepting calls documented in this encounter [facility] 04-17-2022 History of Presen t illness Narrative error documented in this encounter [facility] 02-03-2022 Note The following are th e next steps in your Substance use Treatment Plan: I know you might not be interested in treatment at this time, but here are some resources for you in case you are interested in treatment at some time in the future. Below are additional resources that you may find beneficial in your treatment: 12-Step: Heroin Anonymous : Mikey Adams.: [phone], Colt Vidal: [phone] Narcotics Anonymous: 888-GET_HOPE (942-226-2656) [employer] Alcohol Anonymous: [facility] NarAnon: 201.689.5831: 12-step program for families & friends of people with addiction. CRISIS: Homeless Hotline: 500.230.7149 Domestic Violence help line anytime: 360.622.5252 Crisis Hotline: 28/08- 826.682.4239 [facility] Addiction Helpline: 614.700.9200 (available 8:30 AM to 4:00 PM ) 2-1-1 2-1-1 helps people across [facility] find local resources when they don't know where to turn for help. We are available 24 hours a day, 7 days a week. For help, simply dial 03-08-1 to speak to one of our trained professionals. DETOX TREATMENT: [facility]: anytime @ 219.536.9559 for alcohol & drug addiction help. [facility], [place] [phone] [facility] - [employer] coordination: [phone] (Medicare not accepted) [place], [place]: [phone] ([employer] Medicaid not accepted) [facility], [place]: [phone] ([employer] Medicaid not accepted) [place], [place]: [phone] [facility] [facility] [place]: [phone] [facility], [place]: [phone], [place], [place]: [phone] [place], [place] [phone] [facility] [place], [place]: [phone] [facility], [place], [place] [phone] ext. [phone] [place], [place] (pt. must be medically cleared prior to admission in ED) [place], [place] [phone] [facility] [place]: [phone] ([employer] Medicaid not accepted) OUTPATIENT TREATMENT: 1st Step MAT Program @ [facility] ED: [phone] 1st Step MAT Program @ [facility] ED: [phone] [facility]: [phone] [facility], [place] [phone] [facility], [place]: [phone], [place]: [phone] [facility] [place]: [phone] [facility]: [phone], [place]: [phone] [facility]: [phone]; [place]: [phone] [facility]: LC[facility] Alexandra [facility]: [address] [place], [place]: [phone] [place], [place] [phone] [facility] [place], [place] [phone] [facility] [phone] [facility]: [employer] (180): [place] [phone] [place] & [place]: [phone] RESIDENTIAL TREATMENT FACILITIES: [facility] [place], [place] [phone] (admission coordinated by ADM Brice Fuller ext [phone]) [facility] [place]: [phone]; Men's services inpt. & women services - Outpt. [place], [place] [phone] [facility], [place], [place] [phone] [facility], [place], [place] [phone] [facility], [place], [place] [phone] [facility], [place] [phone] [facility], [place], [place] [phone] [facility] [place], [place], [place] [phone] [facility] service: [phone] [facility]: [phone] ext. [phone] Medicaid Health Coverage: [employer]: [phone] Brando Brooks RN 02/03/222048 [facility] 02-03-2022 Note The patient was give n additional small dose of Narcan IV. On reevaluation of the patient she is alert and oriented x4, speaking clearly. She reports that she feels like her normal self, she denies any symptoms at this time. The patient is calling for a ride for someone to pick her up from the emergency department. The patient will be discharged with follow-up to PCP. Instructed to remain in the presence of others for the next few hours for further observation. And return to the ED should her status change or worsen. The patient demonstrated general understanding and was agreeable with the medical plan. Tanner Garcia, 02/03/221936 [facility] 01-31-2022 Note - Strokes found to b e embolic in origin with PFO, lifelong apixaban initiated - Referral placed to heme/onc, hypercoagulable panel and studies negative for lupus anticoagulant, but did have low protein S, unclear if causative or consequence of clots - If additional intervention or workup is needed, appreciate guidance from heme/onc [facility] 01-23-2022 Note Patient: Skyler Cortés Procedure Summary Date: 01/23/22 Room / Location: [facility] Special Procedures Anesthesia Start: 1606 Anesthesia Stop: 1852 Procedure: IR ANGIOGRAM PULMONARY NONSELECTIVE CATH OR VENOUS INJECTION Diagnosis: Scheduled Providers: Responsible Provider: Doron Rodgers MD Anesthesia Type: TIVA, MAC ASA Status: 3 Anesthesia Type: TIVA, MAC Vitals Value Taken Time BP 102/68 01/23/22 1851 Temp 97.0 01/23/22 1855 Pulse 55 01/23/22 1853 Resp 12 01/23/22 1855 SpO2 99 % 01/23/221852 Vitals shown include unvalidated device data. Anesthesia Post Evaluation Patient location during evaluation: PACU Patient participation: complete - patient participated Level of consciousness: awake and responsive to light touch Pain management: satisfactory to patient Airway patency: patent Dental Injury: no Cardiovascular status: acceptable, blood pressure returned to baseline and hemodynamically stable Respiratory status: acceptable and spontaneous ventilation Hydration status: euvolemic Nausea/Vomiting: controlled No notable events documented. Patient can be discharged once all PACU criteria has been met. [facility] 01-23-2022 Note Patient: Skyler Cortés Procedure Summary Date: 01/23/22 Room / Location: [facility] Procedures Anesthesia Start: 1605 Anesthesia Stop: 1852 Procedure: IR ANGIOGRAM PULMONARY NONSELECTIVE CATH OR VENOUS INJECTION Diagnosis: Scheduled Providers: Responsible Provider: Doron Rodgers MD Anesthesia Type: TIVA, MAC ASA Status: 3 Anesthesia Type: TIVA, MAC Vitals Value Taken Time BP 102/68 01/23/221 Temp 97.0 01/23/22 1854 Pulse 58 01/23/22 185 Resp 12 01/23/22 1854 SpO2 99 % 01/23/221851 Vitals shown include unvalidated device data. Anesthesia Post Evaluation Patient location during evaluation: PACU Patient participation: complete - patient participated Level of consciousness: responsive to light touch and awake Pain score: 0 Pain management: satisfactory to patient Multimodal analgesia pain management approach Airway patency: patent Two or more strategies used to mitigate risk of obstructive sleep apnea Cardiovascular status: acceptable and hemodynamically stable Respiratory status: acceptable, spontaneous ventilation and room air Hydration status: acceptable No notable events documented. MIPS #430 PONV Patient did not receive an inhalational anesthetic ([id number] MIPS # 424 Perioperative Temperature Management Anesthesia time was 60 minutes or longer (4255F) Anesthesai administered was General (inhalational or TIVA) or Neuraxial block At least one body temperature greater than 95.8F/35.5C achieved within the 30 mins immediately prior to or the 15 minutes immediately following anesthesia end time MIPS #477 Multimodal Pain Management Not emergent case Patient was not administered multimodal pain management Patient reports no pain in PACU MIPS #404 Anesthesiology Smoking Abstinence MIPS 404 I completed my handoff to the receiving clinician during which we: 1. Identified the patient 2. Identified the responsible provider 3. Reviewed the pertinent medical history 4. Discussed the surgical course 5. Reviewed intra-op anesthesia management and issues during anesthesia 6. Set expectations for post-procedure period 7. Allowed opportunity for questions and acknowledgement of understanding. [facility] 01-23-2022 Note Patient: Skyler Cortés Procedure Information Date/Time: 01/23/22 1300 Procedure: IR ANGIOGRAM PULMONARY NONSELECTIVE CATH OR VENOUS INJECTION Location: [facility] Special Procedures Relevant Problems Neuro/Psych (+) Stroke due to embolism of left middle cerebral artery (CMS/HCC) (HCC) Past Medical History: Past Medical History: No date: Anxiety Past Surgical History: Past Surgical History: 01/17/2022: CT CHEST ANGIOGRAM W AND/OR WO IV CONTRAST Comment: CT CHEST ANGIOGRAM W AND/OR WO IV CONTRAST 01/17/2022 [facility] CT IMAGING 01/12/2022: IR ANGIOGRAM CEREBRAL THROMBECTOMY Comment: IR ANGIOGRAM CEREBRAL THROMBECTOMY 01/12/2022 Gilberto Sharma MD [facility] SPECIAL PROCEDURES 01/15/2022: IR ANGIOGRAM CEREBRAL THROMBECTOMY Comment: IR ANGIOGRAM CEREBRAL THROMBECTOMY 01/15/2022 Gilberto Sharma MD [facility] SPECIAL PROCEDURES Social History: TOBACCO: has no history on file for tobacco use. ETOH: has no history on file for alcohol use. Social History Substance and Sexual Activity Drug Use Not on file Family History: No family history on file. Screening: unknown Clinical information reviewed: Allergies Meds Med Hx Surg Hx Fam Hx Soc Hx Physical Exam Airway Mallampati: II Cardiovascular - normal exam Dental (+) poor dentition, missing Pulmonary - normal exam Abdominal Abdomen: soft Anesthesia Plan ASA 3 TIVA and MAC The patient is not a current smoker. Patient was not previously instructed to abstain from smoking on day of procedure. Patient did not smoke on day of procedure. Anesthetic plan and risks discussed with patient. patient is NPO SOFIA Screening Labs: Lab Results Component Value Date WBC 7.1 01/23/2022 HGB 12.0 01/23/2022 HCT 36.0 01/23/2022 MCV 88.5 01/23/2022 PLT 390 01/23/2022 Lab Results Component Value Date NA 135 01/23/2022 K 4.2 01/23/2022 CL 103 01/23/2022 CO2 27 01/23/2022 BUN 19 (H) 01/23/2022 CREATININE 0.79 01/23/2022 GLUCOSE 93 01/23/2022 CALCIUM 10.0 01/23/2022 PROT 5.9 (L) 01/13/2022 ALKPHOS 48 01/13/2022 AST 27 01/13/2022 ALT 31 01/13/2022 EGFR >90.0 01/23/2022 Pain Score: 5 - Moderate pain No components found for: LVEF, LVEFMODE Transthoracic echocardiogram (TTE) complete with contrast, bubble, strain, and 3D PRN Result Date: 01/13/2022 ? Left?Ventricle: Left ventricle size is normal. Normal wall thickness. Low normal left ventricular systolic function. The EF by visual approximation is 50%. EF by 2D Simpsons Biplane is 53%. Normal wall motion. ? Right?Ventricle: Right ventricle size is normal. Normal systolic function. ? Interatrial?Septum: No interatrial shunt visualized on color Doppler. Agitated saline study was positive without provocation. Right to left shunt was noted. ? No significant valvular abnormalities. No results found for this or any previous visit. [facility] 01-15-2022 Note Patient: Skyler Cortés Procedure Summary Date: 01/15/22 Room / Location: Anesthesia Start: 515 Anesthesia Stop: 635 Procedure: Procedure Not Yet Scheduled Diagnosis: Scheduled Providers: Responsible Provider: Marcelino Restrepo MD Anesthesia Type: MAC ASA Status: 3 - Emergent Anesthesia Type: MAC Vitals Value Taken Time BP 116/67 01/15/22 0636 Temp 36.1 ?C (97 ?F) 01/15/22 0636 Pulse 64 01/15/22 0636 Resp 12 01/15/22 0636 SpO2 100 % 01/15/22 0636 Anesthesia Post Evaluation Patient location during evaluation: ICU Patient participation: complete - patient participated Level of consciousness: awake and alert Pain management: satisfactory to patient Airway patency: patent Dental Injury: no Cardiovascular status: acceptable, blood pressure returned to baseline and hemodynamically stable Respiratory status: acceptable and spontaneous ventilation Hydration status: euvolemic Nausea/Vomiting: controlled No notable events documented. Patient can be discharged once all PACU criteria has been met. [facility] 01-15-2022 Note Patient: Skyler Cortés Procedure Summary Date: 01/15/22 Room / Location: Anesthesia Start: 0516 Anesthesia Stop: 635 Procedure: Procedure Not Yet Scheduled Diagnosis: Scheduled Providers: Responsible Provider: Marcelino Restrepo MD Anesthesia Type: MAC ASA Status: 3 - Emergent Anesthesia Type: MAC Vitals Value Taken Time BP 116/67 01/15/2236 Temp 36.1 ?C (97 ?F) 01/15/22 0636 Pulse 64 01/15/22 0636 Resp 12 01/15/22 0636 SpO2 100 % 01/15/22635 Anesthesia Post Evaluation Patient location during evaluation: ICU Patient participation: complete - patient participated Level of consciousness: awake and alert Pain management: satisfactory to patient Multimodal analgesia pain management approach Airway patency: patent Two or more strategies used to mitigate risk of obstructive sleep apnea Cardiovascular status: acceptable and hemodynamically stable Respiratory status: acceptable Hydration status: acceptable No notable events documented. MIPS #430 PONV Patient did not receive an inhalational anesthetic ([id number] MIPS # 424 Perioperative Temperature Management Anesthesia time was 60 minutes or longer (4255F) Anesthesai administered was General (inhalational or TIVA) or Neuraxial block At least one body temperature greater than 95.8F/35.5C achieved within the 30 mins immediately prior to or the 15 minutes immediately following anesthesia end time MIPS #477 Multimodal Pain Management Emergent case [facility] #404 Anesthesiology Smoking Abstinence [facility] 404 I completed my handoff to the receiving clinician during which we: 1. Identified the patient 2. Identified the responsible provider 3. Reviewed the pertinent medical history 4. Discussed the surgical course 5. Reviewed intra-op anesthesia management and issues during anesthesia 6. Set expectations for post-procedure period 7. Allowed opportunity for questions and acknowledgement of understanding. [facility] 01-15-2022 Note Patient: Skyler Cortés Procedure Information Date: 01/15/22 Procedure: Procedure Not Yet Scheduled Relevant Problems Neuro/Psych (+) Stroke due to embolism of left middle cerebral artery (CMS/HCC) (HCC) Other (+) IVDU (intravenous drug user) (+) Methamphetamine abuse (CMS/HCC) (HCC) Past Medical History: Past Medical History: No date: Anxiety Past Surgical History: Past Surgical History: 01/12/2022: IR ANGIOGRAM CEREBRAL THROMBECTOMY Comment: IR ANGIOGRAM CEREBRAL THROMBECTOMY 01/12/2022 Gilberto Sharma MD [facility] SPECIAL PROCEDURES Social History: TOBACCO: has no history on file for tobacco use. ETOH: has no history on file for alcohol use. Social History Substance and Sexual Activity Drug Use Not on file Family History: No family history on file. Screening: unknown Clinical information reviewed: Allergies Physical Exam Airway Comments: Unable to assess Cardiovascular Dental Pulmonary Abdominal Anesthesia Plan ASA 3 - emergent MAC The patient is not a current smoker. Anesthetic plan and risks discussed with patient. patient is NPO SOFIA Screening Labs: Lab Results Component Value Date WBC 6.8 01/15/2022 HGB 10.3 (L) 01/15/2022 HCT 31.2 (L) 01/15/2022 MCV 89.3 01/15/2022 PLT 271 01/15/2022 Lab Results Component Value Date NA 138 01/13/2022 K 3.6 01/13/2022 CL 111 (H) 01/13/2022 CO2 25 01/13/2022 BUN 9 01/13/2022 CREATININE 0.74 01/13/2022 GLUCOSE 90 01/13/2022 CALCIUM 8.6 01/13/2022 PROT 5.9 (L) 01/13/2022 ALKPHOS 48 01/13/2022 AST 27 01/13/2022 ALT 31 01/13/2022 EGFR >90.0 01/13/2022 Pain Score: 0 - No pain No components found for: LVEF, LVEFMODE Transthoracic echocardiogram (TTE) complete with contrast, bubble, strain, and 3D PRN Result Date: 01/13/2022 ? Left?Ventricle: Left ventricle size is normal. Normal wall thickness. Low normal left ventricular systolic function. The EF by visual approximation is 50%. EF by 2D Simpsons Biplane is 53%. Normal wall motion. ? Right?Ventricle: Right ventricle size is normal. Normal systolic function. ? Interatrial?Septum: No interatrial shunt visualized on color Doppler. Agitated saline study was positive without provocation. Right to left shunt was noted. ? No significant valvular abnormalities. No results found for this or any previous visit. [facility] 01-12-2022 Note Patient: Skyler Cortés Procedure Summary Date: 01/12/22 Room / Location: [facility] Special Procedures Anesthesia Start: 1455 Anesthesia Stop: 1550 Procedure: IR ANGIOGRAM CEREBRAL THROMBECTOMY Diagnosis: Scheduled Providers: Responsible Provider: Enrico Baires MD Anesthesia Type: MAC ASA Status: 3 - Emergent Anesthesia Type: MAC Vitals Value Taken Time BP 132/85 01/12/22 1554 Temp 98.0 01/12/22 1559 Pulse 69 01/12/22 1557 Resp 14 01/12/22 1557 SpO2 96 % 01/12/22 1557 Vitals shown include unvalidated device data. Anesthesia Post Evaluation Patient location during evaluation: ICU Patient participation: complete - patient participated Level of consciousness: awake and alert Pain management: adequate Airway patency: patent Dental Injury: no Cardiovascular status: acceptable and hemodynamically stable Respiratory status: acceptable, nonlabored ventilation and room air Hydration status: acceptable Nausea/Vomiting: controlled No notable events documented. Patient can be discharged once all PACU criteria has been met. [facility] 01-12-2022 Note Patient: Skyler Cortés Procedure Summary Date: 01/12/22 Room / Location: [facility] Special Procedures Anesthesia Start: 1454 Anesthesia Stop: 1549 Procedure: IR ANGIOGRAM CEREBRAL THROMBECTOMY Diagnosis: Scheduled Providers: Responsible Provider: Enrico Baires MD Anesthesia Type: MAC ASA Status: 3 - Emergent Anesthesia Type: MAC Vitals Value Taken Time BP 132/85 01/12/22 1554 Temp 98.0 01/12/22 1557 Pulse 56 01/12/22 1556 Resp 10 01/12/22 1556 SpO2 95 % 01/12/22 1556 Vitals shown include unvalidated device data. Anesthesia Post Evaluation Patient location during evaluation: ICU Patient participation: complete - patient participated Level of consciousness: awake and alert (sedated/intubated) Pain score: 0 Pain management: adequate There was medical reason for not using a multimodal analgesia pain management approach.Airway patency: patent Cardiovascular status: hemodynamically stable and acceptable Respiratory status: acceptable, spontaneous ventilation and nonlabored ventilation Hydration status: acceptable No notable events documented. MIPS #430 PONV Patient did not receive an inhalational anesthetic ([id number] MIPS # 424 Perioperative Temperature Management Anesthesia time was less than 60 minutes (4256F) MIPS #477 Multimodal Pain Management Not emergent case Patient was not administered multimodal pain management Patient reports no pain in PACU MIPS #404 Anesthesiology Smoking Abstinence MIPS 404 I completed my handoff to the receiving clinician during which we: 1. Identified the patient 2. Identified the responsible provider 3. Reviewed the pertinent medical history 4. Discussed the surgical course 5. Reviewed intra-op anesthesia management and issues during anesthesia 6. Set expectations for post-procedure period 7. Allowed opportunity for questions and acknowledgement of understanding. [facility] 01-12-2022 Note Patient: Skyler Cortés Procedure Information Anesthesia Start Date/Time: 01/12/22 1455 Procedure: IR ANGIOGRAM CEREBRAL THROMBECTOMY Location: [facility] Special Procedures Relevant Problems Neuro/Psych (+) Stroke due to embolism of left middle cerebral artery (CMS/HCC) (HCC) Past Medical History: No past medical history on file. Past Surgical History: No past surgical history on file. Social History: TOBACCO: has no history on file for tobacco use. ETOH: has no history on file for alcohol use. Social History Substance and Sexual Activity Drug Use Not on file Family History: No family history on file. Screening: unknown Clinical information reviewed: Allergies Physical Exam Airway Mallampati: II TM distance: >3 FB Neck ROM: full Mouth Open: normalendotracheal tube not in place Cardiovascular Dental Pulmonary Abdominal Anesthesia Plan ASA 3 - emergent MAC The patient is not a current smoker. Anesthetic plan and risks discussed with patient. Patient is NPO: unknown. SOFIA Screening Labs: Lab Results Component Value Date WBC 8.1 01/12/2022 HGB 12.8 01/12/2022 HCT 38.1 01/12/2022 MCV 87.9 01/12/2022 PLT 396 01/12/2022 Lab Results Component Value Date NA 143 01/12/2022 K 3.4 01/12/2022 CREATININE 0.9 01/12/2022 No components found for: LVEF, LVEFMODE No echocardiogram results found for the past 14 days No results found for this or any previous visit. [facility] 05-31-2021 Note CD OP DISCHARGE NOTE AND SUMMARY Assessment Date: 04/18/21 CD OP Admission Date: 05/03/21 Admission Diagnostic Impression: F11.20 Opioid Use Disorder, severe on MAT ? F43.10 Post-Traumatic Stress Disorder ? F31.32 Bipolar I Disorder, Moderate Discharge Diagnostic Impression: F11.20 Opioid Use Disorder, severe on MAT ? F43.10 Post-Traumatic Stress Disorder ? F31.32 Bipolar I Disorder, Moderate Discharge Date: 05/31/21 Type of Discharge: UNAPPROVED Discharge/Transfer To: Recommended to re-engage in treatement and be reassessed for appropriate level of care placement Can patient identify as being an alcoholic/addict: Yes Does patient verbalize understanding of the disease concept of addiction: Partial Is the patient willing to commit to abstinence: Yes Does she accept responsibility for the addiction: Yes Is she able to identify and process warning signs and triggers for possible relapse: Partial Does the patient have complicated psychiatric or medical issues: No If yes, does patient have a plan in place to address these issues: NA Is the patient medication-compliant: Yes Does the patient have a sober support system: Yes Are any of these supports engaged in, or oriented to, 12-Step programming: No Does patient have a sponsor: No (If yes, how often during a week does patient talk to sponsor:) Is patient regularly attending 12-Step meetings: No (If yes, how many per week: ) Can he identify high-risk situations: Partial Can patient identify warning signs and triggers: Partial Can she identify coping skills for recovery: Partial ASAM CRITERIA/SEVERITY ANALYSIS 0 ? Non-issue/low risk 1 ? Mild diffi culty in functioning 2 ? Moderate diffi culty in functioning 3 ? Serious issue or diffi culty coping/in or near ?imminent danger? 4 ? Severe ? indicating an ?imminent danger? concern SUMMARY/JUSTIFICATION FOR LEVEL OF CARE 3 Dimension 1: Acute Intoxication and/or Withdrawal Potential Comments: Pt reported that during her first IOP session that she relapsed and used fentanyl. Pt did not return to treatment and her current withdrawal potential cannot be determined. 2 Dimension 2: Biomedical Conditions and Complications Comments: Hep C 2 Dimension 3: Emotional, Behavioral, or Cognitive Conditions and Complications Comments: depression, anxiety ad trauma reported. Pt reports that she is significantly struggling with recent legal charges and how they have impacted her day to day functioning. 3 Dimension 4: Readiness to Change Comments:Pt appeared motivated for treatment but abruptly ceased attendance and was unreachable despite outreach. 3 Dimension 5: Relapse, Continued Use, or Continued Problem Potential Comments: High likelihood of relapse evidenced by use Hx 3 Dimension 6: Recovery/Living Environment Comments:Limited sober supports, unheatlhy recovery environment with familial related stressors Comments: Unable to be determined at this time Pt is discharged approved from [facility] upon completion of 1 sessions. She did not complete discharge paperwork because she did not return to treatment. Pt did not complete a treatment plan because she abruptly ceased attendance. Her prognosis is Unable to Assess at this time. [facility] 05-31-2021 Note Behavioral Health Ou tpatient Discharge Instructions Discharge Date: 05/31/21 Discharge Treatment Recommendations: Upon UNAPPROVED/ AMA discharge from [facility], you are being recommended to follow up with the following home going instructions: Other Recommendations: Re-engage in treatment immediately, receive an assessment and evaluation of current treatment needs and follow any/all treatment recommendation, abstain from using any mood altering chemicals, Get a sponsor, Maintain regular contact with sponsor and Maintain medication compliance Patient given a copy of these treatment recommendations? Yes, mailed Patient Signature: Date: [facility] Summary Purpose Family History No Family History Records FoundNo Family History Records FoundNo Family History Records FoundNo Family History Records FoundNo Family History Records FoundNo Family History Records FoundNo Family History Records FoundNo Family History Records FoundNo Family History Records FoundNo Family History Records FoundNo Family History Records Found Advance Directives No Advanced Directives Records FoundDocuments on File Type Date Recorded Patient Spark Plug Tester Expl anation Advance Directives and Living Will Power of Lumber Loader Latest Code Status on File Code Status Date Activated Date Inactivated Comments Full Code 10/03/2018 1:05 AM Documents on File Type Date Recorded Patient Spark Plug Tester Expl anation ACP-Advance Directive ACP-Power of Lumber Loader Latest Code Status on File Code Status Date Activated Date Inactivated Comments Full Code 10/03/2018 1:05 AM 10/07/2018 9:51 AM Latest Code Status on File Code Status Date Activated Date Inactivated Comments Full Code 01/12/2022 2:39 PM 01/25/2022 4:31 PM Discharge Instructions * Instructions* Yohannes Sullivan MD - 10/07/2018 Follow up appointment with your doctor/senior j2ee developer - Keep next scheduled appointment Activity - Normal activity Call your doctor/senior j2ee developer if you have: - Leaking fluid - Vaginal bleeding - Regular contractions: More than 6 contractions in one hour - Decreased movement - Worsening abdominal (belly) pain - Headache, blurry vision, increased swelling, upper abdominal pain Treatment Verification: Mague Cortés was assessed on Labor and Delivery for a related visit on 10/07/18. Yohannes Sullivan MD [facility] documented in this encounter History of Present Illness * Jose Duncan MD - 10/06/2018 6:46 AM EDT Maternal Medicine Service Resident Progress Note 10/06/2018 6:47 AM 10/02/2018 Hospital Day: 5 Mague Cortés, 27 y.o. 20w0d Patient has been seen and examined. Pt with no complaints overnight. Positive movement Negative vaginal bleeding Negative LOF Negative Contractions Vitals: 10/04/18 2210 10/05/18 0630 10/05/18 1417 10/05/18 2130 BP: (!) 99/57 (!) 93/59 (!) 92/45 (!) 105/53 Pulse: 61 68 65 72 Resp: 17 16 16 16 Temp: 98.9 F (37.2 C) 98.7 F (37.1 C) 97.9 F (36.6 C) 98.4 F (36.9 C) TempSrc: Temporal Oral Temporal SpO2: 97% Weight: Height: Physical Exam: Gen: NAD HEENT: Normocephalic, Atraumatic, EOMI, MMM Resp: CTABL, no WRR Card: RRR S1S2 Abd: soft, gravid, NTND, no rebound, no guarding. negative Fundal tenderness Ext: No LE edema, no calf tenderness or swelling Medications: Current Facility-Administered Medications Medication Dose Route Frequency Provider Last Rate Last Dose oxytocin (PITOCIN) 10 UNIT/ML injection magnesium hydroxide (MILK OF MAGNESIA) 400 MG/5ML suspension 30 mL 30 mL Oral Daily PRN Mague Land MD 30 mL at 10/05/18 1700 docusate sodium (COLACE) capsule 100 mg 100 mg Oral BID Lashaun James MD 100 mg at 10/05/182137 gabapentin (NEURONTIN) capsule 800 mg 800 mg Oral TID Bre Aparicio MD 800 mg at 10/05/182137 acetaminophen (TYLENOL) tablet 650 mg 650 mg Oral Q4H PRN Bre Aparicio MD ondansetron (ZOFRAN-ODT) disintegrating tablet 4 mg 4 mg Oral Q4H PRN Bre Aparicio MD vitamin 27-1 MG tablet 1 tablet 1 tablet Oral Daily Bre Aparicio MD 1 tablet at 10/05/18 0853 lamoTRIgine (LAMICTAL) tablet 200 mg 200 mg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 ATION 11/14/2022 [facility] DATE CREATED AUTHOR AUTHOR'S ORGANIZ ATION 02/24/2023 [facility] Reason for Visit (unrecogniz ed section and content) Reason Comments Addiction Problem Reason Onset Date Comments Appointment Confirmation 04/17/2022 Reason Onset Date Comments Hospital Follow-up 04/25/2022 90 day mRS Care Teams (unrecognized sec tion and content) Tourist Cabin Keeper Relationship Specialty Start Date End Date Josefina Victor MD [address] [place] [address] PCP - General 11/01/15 Tourist Cabin Keeper Relationship Specialty Start Date End Date Josefina Victor MD [address] [place] [address] PCP - General 11/01/15 Tourist Cabin Keeper Relationship Specialty Start Date End Date No, Pcp [address] [place] [address] PCP - General 01/14/22 Tourist Cabin Keeper Relationship Specialty Start Date End Date No, Pcp [address] [place] [address] PCP - General 01/14/22 Tourist Cabin Keeper Relationship Specialty Start Date End Date No, Pcp [address] [place] [address] PCP - General 01/14/22 FOR RECORDS PERTAINING TO PATIENTS WHO ARE OR HAVE BEEN ENROLLED IN A CHEMICAL DEPENDENCY/SUBSTANCEABUSE PROGRAM, SOME INFORMATION MAY BE OMITTED. This clinical summary was aggregated from multiple sources. Caution should be exercised in using it in the provision of clinical care. This summary normalizes information from multiple sources, and as a consequence, information in this document may materially change the coding, format and clinical context of patient data. In addition, data may be omitted in some cases. CLINICAL DECISIONS SHOULD BE BASED ON THE PRIMARY CLINICAL RECORDS. [employer] [facility]. provides no warranty or guarantee of the accuracy or completeness of information in this document.
[2023-03-02 13:29] LABS: Bacteria 0 SEEN /hpf (None Seen); Mucous, Urine 0 SEEN /hpf (<or=2+); Red Blood Cells-Urine 0 SEEN /hpf (0-5)
[2023-03-02 13:30] LABS: Color, Urine Yellow (Yellow); Glucose, Dipstick Normal (Normal); Ketone-Dipstick 5 mg/dl (Negative); Leukocyte Esterase-Dipstick 100 /ul (Negative); Nitrite-Dipstick Negative (Negative); Occult Blood-Urine 10 /ul (Negative); Protein-Dipstick 30 mg/dl (Negative); Specific Gravity, Urine 1.025 (1.002-1.030); Urine Clarity Clear (Clear); Urine Urobilinogen Normal (Normal)
[2023-03-02 13:31] LABS: Urine Bilirubin Dipstick 1 mg/dL (Negative)
[2023-03-02 13:32] LABS: Absolute Lymphocyte Count 1.64 X10^3/uL (0.83-4.51); Absolute Neutrophil Count 10.7 X10^3/uL (2.0-7.7); Basophil# 0.07 X10^3/uL; Basophil% 0.5 % (0-1); Eosinophil# 0.07 X10^3/uL; Eosinophils% 0.5 % (0-5); Hematocrit 25.8 % (37-47); Hemoglobin 8.2 g/dL (12.0-15.0); Lymphocyte # 1.64 X10^3/ul (0.83-4.51); Lymphocyte % 12.1 % (19-41); Mean Corp Hgb Conc 31.8 g/dL (32-36); Mean Corpuscular Hgb 28.6 pg (27.0-32.0); Mean Corpuscular Volume 89.9 fL (81-99); Monocyte# 1.06 X10^3/uL; Monocyte% 7.8 % (0-10); NRBC Flagged by Analyzer 0 % (0-5); Neutrophil # 10.66 X10^3/uL (2.7-7.7); Neutrophil % 78.7 % (47-70); Platelet Count 429 K/mm3 (150-450); RBC Distribution Width CV 12.7 % (11.6-14.6); RBC Distribution Width SD 41.6 fl (35.1-43.9); Red Blood Count 2.87 M/mm3 (4.2-5.4); White Blood Count 13.6 K/mm3 (4.4-11.0)
[2023-03-02 13:36] LABS: Squamous Epithelial Cells - UA 5-10 SEEN /hpf (5-10); White Blood Cells 5-10 SEEN /hpf (0-5)
[2023-03-02 13:47] LABS: ALB/GLOB Ratio 0.9 RATIO (0.9-2.4); AST(SGOT) 12 U/L (15-37); Alanine Aminotransfer ALT/SGPT 14 U/L (13-56); Albumin, Serum 3.2 g/dL (3.2-5.0); Alkaline Phosphatase 42 U/L (45-117); Anion Gap 1 (5-15); BUN 11 mg/dL (7-18); BUN/Creat Ratio 12.3 RATIO (10-20); Calcium,Total 8.7 mg/dL (8.5-10.1); Chloride 110 mmol/L (98-107); EST Glomerular Filtration Rate 77 mL/min (>60); Est Glom Filt Rate - Afr Amer 93 mL/min (>60); Estimated Creatinine Clearance 94.73 ml/min; Globulin 3.4 g/dL (2.2-4.2); Glucose 94 mg/dL (74-106); Lipase 34 U/L (13-75); Potassium 3.7 mmol/L (3.5-5.1); Protein, Total 6.6 g/dL (6.4-8.2); Sodium Level 137 mmol/L (136-145)
[2023-03-02 13:53] LABS: Internal QC Validated? YES +Cl - CLEAR BKGD; Pregnancy, Serum, hCG Quali. NEGATIVE Negative
[2023-03-02 15:13] VITALS: BP 123/88; PULSE 91; RESP 18; O2SAT 100
[2023-03-02] MEDS: Ketorolac 30 MG/ML Syringe IV (15:28)
[2023-03-02] MEDS: Amox/Clavulanate 875 MG Tablet PO (15:31)
== END 2023-03-02 15:32 | disposition home or self-care (01) ==
PROVIDERS: Emergency Provider Emergency Medicine; Visit Provider Emergency Medicine
DX: K57.92 Diverticulitis of intestine, part unspecified, without perforation or abscess without bleeding (principal); N83.201 Unspecified ovarian cyst, right side; F17.210 Nicotine dependence, cigarettes, uncomplicated; E66.9 Obesity, unspecified
CPT/HCPCS: J2405; 74176; 80053; 81001; 83690; 84703; 85025; 96361; 96374; 96375; 99282; J7030; A4216

== ENCOUNTER 2023-05-27 19:59 | Emergency (ER) | payer MEDICAID, SELFPAY ==
[2023-05-27 19:59] VITALS: BP 130/82; PULSE 78; RESP 16; TEMP 36.3; O2SAT 99; BMI 32.3
--- NOTE | 2023-05-27 20:31 | EX.ED.UPPERE ---
HPI <PAM Barakat - Last Filed: 05/27/23 21:03> History of Present Illness HPI Narrative: 32-year-old female states about a week ago she developed pain in both forearms. She feels like the pain has moved up the left forearm into the inner elbow area and it looks swollen. She has no injury. She has no weakness, numbness or tingling. She is about 7 to 8 weeks and has not seen RISK MANAGEMENT PROFESSIONAL yet. She has a history of stroke and is prescribed Eliquis but was worried about taking it while so is only taking it once every 5 days. Chief Complaint: Upper Extremity Injury PFSH <PAM Barakat - Last Filed: 05/27/23 21:03> [facility] Medical History (Updated 05/27/23 @ 21:03 by PAM Barakat) Anemia Anxiety Bipolar disorder Confusion Congenital heart valve abnormality Depression Drug abuse H/O emotional problems Hepatitis C Opioid abuse Polysubstance abuse Screening for thyroid disorder Seizures Smoker Stroke/cerebrovascular accident Home Medications apixaban 5 mg tablet (Eliquis) 5 mg PO BID 05/27/23 [History Last Taken Unknown] gabapentin 800 mg tablet 300 mg PO Q12H anxiety 05/27/23 [History Last Taken Unknown] lamotrigine 200 mg tablet,extended release 24 hr 150 mg PO DAILY 05/27/23 [History Last Taken Unknown] Allergy/AdvReac Type Severity Reaction Status Date / Time No Known Allergies Allergy Verified 05/27/23 20:01 Family History Other Alcohol abuse Anemia Anxiety Arthritis Asthma Breast cancer Cervical cancer Colon cancer Depression Diabetes Heart disease [place]'s chorea Hypertension Mental disorder Myocardial infarction Ovarian cancer Psychiatric care Seizures Thyroid disorder Surgical History History of cervical LEEP biopsy affecting care of mother, antepartum Social History Smoking Status: Current every day smoker tobacco type: cigarettes alcohol intake: never substance use type: former substance user what type of physical activity do you participate in: none ROS <PAM Barakat - Last Filed: 05/27/23 21:03> ROS ED ROS Narrative Constitutional: Negative for fever, chills, malaise. CVS: Negative for chest pain. Respiratory: Negative for shortness of breath. Neuro: Negative for motor/sensory dysfunction. Skin: Negative for rash. EXAM <PAM Barakat - Last Filed: 05/27/23 21:03> Physical Exam Narrative Exam Narrative: CONST: Patient sitting in no acute distress. EYES: Normal inspection. NECK: Normal inspection. RESP: No respiratory distress, CTAB. CVS: Regular rate and rhythm, no murmur, no gallop. SKIN: Color normal, no rash, warm, dry, intact. EXTREMITIES: 3 x 3 cm area of swelling, tenderness, and warmth on the left medial elbow. There is no significant erythema. There is no palpable cords. There is no diffuse edema of the extremity. She has full range of motion of shoulders elbows wrists and hands. Normal motor and sensory function in median radial and ulnar distributions, 2+ radial pulses. NEURO: Alert and answering questions appropriately. PSYCH: Normal affect. Const Vital Signs: 05/27/23 19:59 Temperature 97.4 F L Temperature Source Temporal Pulse Rate 78 Respiratory Rate 16 Blood Pressure 130/82 H Blood Pressure Mean 98 Pulse Ox 99 Oxygen Delivery Method Room Air MDM <PAM Barakat - Last Filed: 05/27/23 21:03> [facility] Narrative Medical decision making narrative: Patient has focal area of swelling and tenderness on the left medial elbow. She has had some discomfort in the forearm. Extremities are neurovascularly intact. Differential includes superficial phlebitis, DVT, less likely cellulitis based on exam. She is supposed to take Eliquis for history of a stroke. She is unclear on the details but had some type of heart valve issue and blood clot. I do not have ultrasound available on Sunday night but she was scheduled for an ultrasound to be done tomorrow morning. She is scheduled to see her RISK MANAGEMENT PROFESSIONAL in 3 days and I instructed her she needs to discuss anticoagulation. She was comfortable with this plan and discharged in stable condition. <Dr. Dao Zuniga DO - Last Filed: 05/27/23 21:17> [facility] Narrative Medical decision making narrative: Patient has focal area of swelling and tenderness on the left medial elbow. She has had some discomfort in the forearm. Extremities are neurovascularly intact. Differential includes superficial phlebitis, DVT, less likely cellulitis based on exam. She is supposed to take Eliquis for history of a stroke. She is unclear on the details but had some type of heart valve issue and blood clot. I do not have ultrasound available on Sunday night but she was scheduled for an ultrasound to be done tomorrow morning. She is scheduled to see her RISK MANAGEMENT PROFESSIONAL in 3 days and I instructed her she needs to discuss anticoagulation. She was comfortable with this plan and discharged in stable condition. I have personally performed a face to face assessment of the patient and have reviewed the MANINDER Note. I performed a substantive portion of the visit including all aspects of the following. My haley findings include: History is 32-year-old female concerned of blood clot in the left forearm. She states for the past couple days she has had tenderness in the bilateral forearms but now the left forearm up to the elbow is more swollen. He notes she notes no swelling in the hands. She notes most of her pain is over the medial AC fossa on the left. She states she supposed to be taking Eliquis for history of stroke. She states that she had some type of heart issue that required coiling. Question if she needs a patent foramen ovale. She is 7 to 8 weeks is due to see RISK MANAGEMENT PROFESSIONAL in 3 days. Exam is mild swelling of the mid to proximal left forearm forearm. Mild tenderness to palpation. No palpable cords. She has a ring on her left pinky finger which still spins. There is no swelling of the hand or fingers. Normal Joselito's test. Left forearm is mildly tender to palpation in the mid forearm no significant swelling noted no erythema seen in the extremities or rashes. Medical Decison Making I do not have duplex ultrasound available to evaluate the upper extremity for DVT. Will place an order and have her obtain this tomorrow. Discharge Plan Triage Chief Complaint: Upper Extremity Injury ED Midlevel Provider: Julianna Prince ED Provider: Dao Zuniga Dx/Rx/DC Orders Clinical Impression: Left arm pain, Left arm swelling Prescriptions: No Action Eliquis 5 mg tablet 5 mg PO BID gabapentin 800 mg tablet 300 mg PO Q12H lamotrigine 200 mg tablet extended release 24hr 150 mg PO DAILY Other Ambulatory Orders: Venous Duplex US, Unilateral (Stat) Facility: [facility] - Location: [facility] Ordered By: Julianna Glauthier Primary Care Provider: Bonnie Cheema Referrals: Bonnie Cheema MD [Primary Care Provider] - Activity Restrictions/Additional Instructions: There is an order for a left arm ultrasound to be done tomorrow. This will check for blood clots. It is very important you follow-up with RISK MANAGEMENT PROFESSIONAL and discuss taking your blood thinner. Disposition Disposition: Home, Self Care Discharge Date/Time: 05/27/23 21:11
[2023-05-27 21:09] VITALS: BP 114/75; PULSE 78; RESP 16; TEMP 36.8; O2SAT 97
== END 2023-05-27 21:11 | disposition home or self-care (01) ==
PROVIDERS: Emergency Provider Emergency Medicine; PCP Internal Medicine; Visit Provider Emergency Medicine
DX: O99.891 Other specified diseases and conditions complicating pregnancy (principal); O99.331 Smoking (tobacco) complicating pregnancy, first trimester; F17.210 Nicotine dependence, cigarettes, uncomplicated; M79.89 Other specified soft tissue disorders; M79.602 Pain in left arm; Z3A.08 8 weeks gestation of pregnancy; Z79.01 Long term (current) use of anticoagulants; Z86.73 Personal history of transient ischemic attack (TIA), and cerebral infarction without residual deficits
CPT/HCPCS: 99282

== ENCOUNTER 2023-05-28 13:02 | Emergency (ER) | payer MEDICAID, SELFPAY ==
[2023-05-28 13:02] VITALS: BP 125/79; PULSE 73; RESP 18; TEMP 36.4; O2SAT 99; BMI 32.2
--- NOTE | 2023-05-28 13:14 | EX.ED.UPPERE ---
HPI History of Present Illness Chief Complaint: Upper Extremity Injury Detail of Chief Complaint: Patient complains of pain and swelling left upper extremity with positive v Informant: patient and other (Records from this weekend were reviewed.) Occured/Mechanism Comment: No history of trauma Onset/Context/Timing Onset: Days and Weeks Context: Sudden Onset Timing: Continuous Quality of Pain: Dull and Aching Location: Left elbow/forearm pain Current Severity: Mild Maximum Severity: Moderate Worsened by: Movement and palpation Relieved by: Nothing Associated Symptoms Associated Symptoms: Negative for Parasthesia, Weakness or Loss of Funtion Narrative Narrative: Patient is a 32-year-old woman. She states she is 7 weeks gestation. She has an appointment to be seen by [facility]. She is scheduled for nurse practitioner. She is on apixaban for prior stroke. She also has history of seizure disorder, bipolar affective disorder and drug abuse. Patient was seen on 26 May. Venous duplex study was ordered. Venous duplex study reveals a clot in the left cephalic vein and basilic vein. Patient states she has been taking her apixaban. She denies headache, visual, ocular auditory symptoms. She states she has trouble remembering things. She states this is due to her prior strokes. She denies chest pain that is pleuritic. She denies chest pain of any type. She denies shortness of breath or dyspnea on exertion. Prior similar symptoms: No Recent Illness/Hospitalization: No PFSH PFSH Medical History Anemia Anxiety Bipolar disorder Confusion Congenital heart valve abnormality Depression Drug abuse H/O emotional problems Hepatitis C Opioid abuse Polysubstance abuse Screening for thyroid disorder Seizures Smoker Stroke/cerebrovascular accident Home Medications apixaban 5 mg tablet (Eliquis) 5 mg PO BID 05/27/23 [History Last Taken Unknown] gabapentin 800 mg tablet 300 mg PO Q12H anxiety 05/27/23 [History Last Taken Unknown] lamotrigine 200 mg tablet,extended release 24 hr 150 mg PO DAILY 05/27/23 [History Last Taken Unknown] enoxaparin 80 mg/0.8 mL subcutaneous syringe (Lovenox) 80 mg (0.8 mL) subcut Q12H 8 months #384 mL 05/28/23 [Rx Last Taken Unknown] Allergy/AdvReac Type Severity Reaction Status Date / Time No Known Allergies Allergy Verified 05/27/23 20:01 Family History Other Alcohol abuse Anemia Anxiety Arthritis Asthma Breast cancer Cervical cancer Colon cancer Depression Diabetes Heart disease [place]'s chorea Hypertension Mental disorder Myocardial infarction Ovarian cancer Psychiatric care Seizures Thyroid disorder Surgical History History of cervical LEEP biopsy affecting care of mother, antepartum Social History Smoking Status: Current every day smoker tobacco type: cigarettes alcohol intake: never substance use type: former substance user what type of physical activity do you participate in: none ROS ROS ED Constitutional Constitutional ED: Denies chills, fever(s), subjective, sweats or weight loss Eyes Eyes: Denies blurry vision or change in vision Cardiovascular Cardiovascular: Denies chest pain, orthopnea or palpitations Respiratory/Chest Respiratory/Chest: Denies cough, dyspnea, dyspnea on exertion or orthopnea Gastrointestinal Gastrointestinal: Denies abdominal pain, melena or vomiting Genitourinary Genitourinary ED: Denies hematuria Musculoskeletal Musculoskeletal: Denies back pain or neck pain Integumentary Denies rash Neurologic Neurologic: Denies paresthesias or weakness Hematologic/Lymphatic Hematologic/Lymphatic: Denies easy bleeding or easy bruising EXAM Physical Exam Const Vital Signs: 05/28/23 13:02 Temperature 97.6 F L Temperature Source Temporal Pulse Rate 73 Respiratory Rate 18 Blood Pressure 125/79 H Blood Pressure Mean 94 Pulse Ox 99 Oxygen Delivery Method Room Air Positive well nourished, well developed and obese General Appearance ED: well developed and NAD Nutritional Appearance: obese HEENT Reports moist mucous membranes normocephalic and atraumatic Eyes PERRL and EOMs intact bilaterally Eyes Narrative: Conjunctive is pink. Neck full ROM and supple Chest Wall inspection of chest normal and palpation of chest normal Resp normal respiratory effort and clear to auscultation bilaterally Cardio regular rate, regular rhythm, S1 normal heart sound, S2 normal heart sound and no murmurs Back/Spine no CVA tenderness Extremity Extremity Narrative: Left arm/forearm is swollen. There is a palpable cord noted medial volar left elbow. Radial pulses 2+. Neuro CN's II-XII intact bilaterally, moves all extremities and no focal motor deficits Sensorium / Orientation: Negative for alert Psych mental status grossly normal Skin General Skin Exam: Negative for petechiae Lesions: no lesions Rashes: no rashes Trauma: no lacerations or abrasions MDM MDM MDM Narrative Medical decision making narrative: Patient had a positive venous duplex study. Will switch from apixaban to Lovenox. Dr. Whalen who is on-call for [facility] was informed of patient's history, physical and reason for changing from apixaban to Lovenox. She is in agreement. She will make notation in patient's records when she follows up. She also will need follow-up with hematology. Will have her follow-up with Dr. Caceres who is on-call for [facility] hematology/oncology. Management Discussion w/another healthcare provider: Outside Plant Technician Treatment and Re-Evaluation Narrative: Patient demonstrated competency to administer Lovenox injections. She will be discharged to home with prescription for Lovenox and referral to [facility] hematology, Dr. Nico Moscoso. Discharge Plan Triage Chief Complaint: Upper Extremity Injury ED Provider: Roger Nugent Dx/Rx/DC Orders Clinical Impression: Acute cephalic vein thrombosis, Bipolar disorder, Acute basilic vein thrombosis, Deep vein thrombosis (DVT) affecting in first trimester, Anticoagulant long-term use, History of stroke Instructions: ED Deep Vein Thrombosis (DVT) Prescriptions: New enoxaparin [Lovenox] 80 mg/0.8 mL syringe 80 mg subcut Q12H 240 Days Qty: 384 0RF No Action Eliquis 5 mg tablet 5 mg PO BID gabapentin 800 mg tablet 300 mg PO Q12H lamotrigine 200 mg tablet extended release 24hr 150 mg PO DAILY Primary Care Provider: Bonnie Cheema Referrals: Bonnie Cheema MD [Primary Care Provider] - Nico Suarez DO [Med Staff - Active Staff] - 5-7 Days Activity Restrictions/Additional Instructions: 1. Discontinue the apixaban 2. Contact [facility] patient [facility] for urgent follow-up 3. Contact Dr. Caceres's office for hematology follow-up Disposition Disposition: Home, Self Care
[2023-05-28] MEDS: Enoxaparin 100 MG/ML Syringe 90 MG SC (13:56)
--- NOTE | 2023-05-28 14:06 | ED.RN ---
education on lovenox rationale and administration. pt was able to self administer with supervision. slow in rsponse and process, concerns for pt retaining process and ablility to given unsupervised.
--- NOTE | 2023-05-28 14:08 | ED.RN ---
aware of education outcomes
--- NOTE | 2023-05-28 14:26 | ED.RN ---
returned to room to have pt demonstrate without assistance how she would administer at home was able to do successfully and verbalize process approriately dr gamino
[2023-05-28 15:16] VITALS: BP 124/79; PULSE 71; RESP 16; TEMP 36.8; O2SAT 99
== END 2023-05-28 15:17 | disposition home or self-care (01) ==
PROVIDERS: Emergency Provider Emergency Medicine; PCP Internal Medicine; Visit Provider Emergency Medicine
DX: O22.31 Deep phlebothrombosis in pregnancy, first trimester (principal); F31.9 Bipolar disorder, unspecified; I82.622 Acute embolism and thrombosis of deep veins of left upper extremity; O99.341 Other mental disorders complicating pregnancy, first trimester; O99.411 Diseases of the circulatory system complicating pregnancy, first trimester; O99.331 Smoking (tobacco) complicating pregnancy, first trimester; F17.210 Nicotine dependence, cigarettes, uncomplicated; O99.211 Obesity complicating pregnancy, first trimester; Z79.01 Long term (current) use of anticoagulants; Z86.73 Personal history of transient ischemic attack (TIA), and cerebral infarction without residual deficits; Z3A.01 Less than 8 weeks gestation of pregnancy
CPT/HCPCS: 93971; 99282

== ENCOUNTER → 2023-05-28 | Outpatient (CLI) | payer MEDICAID, SELFPAY ==
--- NOTE | 2023-05-28 12:15 | VDUE_ITS ---
Reason For Study: Pain LUE Right Proximal Left Proximal Right subclavian vein is spontaneous, widely Left jugular vein is spontaneous, widely patent, phasic, with no intraluminal patent, phasic, with no intraluminal echogenicity noted. echogenicity noted. Left subclavian vein is spontaneous, widely patent, phasic, with no intraluminal echogenicity noted. Left Arm Left axillary vein is spontaneous, patent, phasic, competent, compressible and demonstrates augmentation. Left brachial vein is compressible. Lt CephalicV in the forearm and BasilicV at elbow are DILATED and NON COMPRESSIBLE consistent with acute SVT. Left Lower Arm Left radial vein is compressible. Left ulnar vein is compressible. Patient Safety Patient sent to ED, no PCP. VL/Venous Duplex US, Unilateral Interpretation Summary Acute superficial vein thrombosis noted in the left cephalic vein, basilic vein Ordering Physician: Julianna Prince Referring Physician: No PCP Performed By: Ariane Angulo, CHRISTO, RVT ???
== END | disposition home or self-care (01) ==
LOC: CVS 12:14
PROVIDERS: PCP Internal Medicine; Referring Provider Physician Assistant; Visit Provider Physician Assistant
DX: M79.602 Pain in left arm (principal)
CPT/HCPCS: 93971

== ENCOUNTER 2023-07-10 16:35 | Emergency (ER) | payer MEDICAID, SELFPAY ==
[2023-07-10 16:36] VITALS: BP 126/85; PULSE 99; RESP 18; TEMP 36.3; O2SAT 99; BMI 31.8
--- NOTE | 2023-07-10 17:33 | US_ITS ---
STUDY: Ultrasound OB limited 1 or more fetus REASON FOR EXAM: Female, 32 years old vaginal bleeding PROVIDED DATIN weeks 1 day correlating with October 08, 2023 delivery date TECHNIQUE: Transabdominal OB ultrasound with grayscale color flow and M-mode Doppler. Additional transvaginal ultrasound of the cervix. TECHNICAL QUALITY: Adequate. FINDINGS: Anteverted uterus with unremarkable myometrium. There is a single intrauterine fetus. The fetus is in currently cephalic presentation. There is demonstrated cardiac activity with a heart rate of 166 bpm. There is a normal amniotic fluid volume. The largest amniotic fluid pocket measures 4.0 cm . The placenta is not well defined with early gestational age with concern for placenta previa The cervix measures 3.7 cm in length and appears closed. BIOMETRY: BPD: 2.3 cm: 13 weeks, 6 days HC: 3.3 cm: 14 weeks, 2 days AC: 17.7 cm: 14 weeks, 1 days FL: 1.3 cm: 13 weeks, 5 days age by current US: 14 weeks, 0 days. [place] by current US: January 08, 2024. Estimated weight: 86 grams, +/- 13 grams, 20 percentile compared to prior dating. 2.8 x 3.2 x 1.5 cm cyst is noted in the left adnexa. No definitive surrounding ovarian parenchyma. Right ovary is not seen US/OB Limited With Biometrics IMPRESSION: Single live intrauterine with normal heart rate. Concern for placenta previa. 18-20 weeks anatomy ultrasound is recommended with attention to placental margin Cervix is long and closed. dating by biometry is concordant with provided dating. Electronically Signed: Stoney Bentley MD at 19:29 EDT ,
--- NOTE | 2023-07-10 17:34 | ED.VIS.FEGU ---
HPI HPI - Female History of Present Illness Chief Complaint: Vag Bld, Preg Narrative Narrative: 32-year-old female G7, P5 at approximately 14 weeks gestation presents with brown vaginal bleeding that she noticed yesterday. She states that when she wipes after she urinates she noticed brownish discoloration. She does not have vaginal cramping or pelvic cramping. She is unsure of her blood type. She has an appointment with her OB tomorrow but wanted to make sure that everything was okay. She has had 1 miscarriage, and currently sees the ACCOUNTING RECONCILIATION CLERK's at [facility]. [facility] Medical History Congenital heart valve abnormality Depression Anxiety Smoker Stroke/cerebrovascular accident Opioid abuse Confusion Polysubstance abuse Screening for thyroid disorder Bipolar disorder Hepatitis C Seizures H/O emotional problems Drug abuse Anemia Home Medications ?Medication ?Instructions ?Recorded ?Last Taken ?Type apixaban 5 mg tablet (Eliquis) 5 mg PO BID 05/27/23 Unknown History gabapentin 800 mg tablet 300 mg PO Q12H anxiety 05/27/23 Unknown History lamotrigine 200 mg tablet,extended 150 mg PO DAILY 05/27/23 Unknown History release 24 hr enoxaparin 80 mg/0.8 mL 80 mg (0.8 mL) subcut Q12H 8 05/28/23 Unknown Rx subcutaneous syringe (Lovenox) months #384 mL Allergy/AdvReac Type Severity Reaction Status Date / Time No Known Allergies Allergy Verified 07/10/23 16:39 Family History Other Alcohol abuse Anemia Anxiety Arthritis Asthma Breast cancer Cervical cancer Colon cancer Depression Diabetes Heart disease [place]'s chorea Hypertension Mental disorder Myocardial infarction Ovarian cancer Psychiatric care Seizures Thyroid disorder Surgical History History of cervical LEEP biopsy affecting care of mother, antepartum Social History Smoking Status: Current every day smoker tobacco type: e-cigarettes alcohol intake: never substance use type: former substance user what type of physical activity do you participate in: none ROS ROS ED ROS Narrative Constitutional: No fever, no chills. HEENT: No sore throat. No neck pain. No loss of vision. No rhinorrhea. Cardiovascular: No chest pain. No palpitations. No pedal edema. Respiratory: No cough, no shortness of breath. Abdominal: No abdominal pain. No nausea. No vomiting. Genitourinary: No dysuria. No hematuria. Vaginal bleeding with . No vaginal cramping. Musculoskeletal: No myalgias. No arthralgias. Neurologic: No headaches. No dizziness. No lightheadedness. Skin: No rash. No change in color. Psychiatric: No depression. No anxiety. EXAM Physical Exam Narrative Exam Narrative: Afebrile. Vital signs noted. HEENT: Normocephalic. Atraumatic. PERRL, EOMI. Neck soft and supple. No point tenderness or step off. Cardiovascular: Regular rate and rhythm. No murmurs, rubs, or gallops appreciated. Respiratory: No tachypnea. Lungs clear to auscultation bilaterally. Gastrointestinal: Abdomen soft, nontender, with normoactive bowel sounds. No rebound or guarding. Genitourinary: Chaperoned exam reveals unremarkable external genitalia. Speculum examination did not reveal any active bleeding. She may have had very scant brown discharge, but no active bleeding. Neurological: Awake. Alert. Nonfocal, nonlateralizing. Skin: No rash. Normal color. No pallor. Musculoskeletal: No pedal edema. Full range of motion extremities. Const Vital Signs: 07/10/23 16:36 Temperature 97.4 F L Temperature Source Temporal Pulse Rate 99 Respiratory Rate 18 Blood Pressure 126/85 H Blood Pressure Mean 98 Pulse Ox 99 Oxygen Delivery Method Room Air MDM [facility] MDM Narrative Medical decision making narrative: In the differential diagnosis is UTI/hematuria versus vaginal bleeding/threatened . Comprehensive workup was pursued. She has a normal white count of 6.4, hemoglobin stable at 8.5, hematocrit 28.7. CMP is remarkable for chloride of 110, glucose appropriately elevated at 88, ALT low at 12. Urinalysis is negative for infection with 0-5 white cells, no red cells. There is 1+ bacteria. Her urine will be sent for culture, but I do not feel she requires treatment for asymptomatic bacteriuria. Blood type is A+. I reviewed the radiology report of the ultrasound which shows single live intrauterine gestation with normal heart rate. There is no subchorionic bleeding or hematoma. I discussed patient with Dr. Momin, who agrees with urine culture and not treating with antibiotics. Patient has a follow-up appointment tomorrow with ACCOUNTING RECONCILIATION CLERK. I feel she can be discharged safely home with follow-up tomorrow. Return instructions to the emergency department were reviewed. Disposition is discharged home in stable condition. History & Record Review Discussion w/independent historian: Patient Lab Data Attestation: I reviewed the patient's lab results. Labs: Laboratory Results - last 24 hr 07/10/23 07/10/23 17:36 18:14 WBC 6.4 RBC 4.06 L Hgb 8.5 L Hct 28.7 L MCV 70.7 L MCH 20.9 L MCHC 29.6 L RDW Std Deviation 50.8 H RDW Coeff of Manjeet 19.8 H Plt Count 351 MPV 10.3 Immature Gran % (Auto) 0.300 Neut % (Auto) 60.4 Lymph % (Auto) 31.2 [place] % (Auto) 6.2 Eos % (Auto) 1.1 Baso % (Auto) 0.8 Absolute Neuts (auto) 3.9 Absolute Lymphs (auto) 2.01 Nucleated RBC % 0 Sodium 136 Potassium 3.7 Chloride 110 H Carbon Dioxide 22.0 Anion Gap 4 L BUN 6 L Creatinine 0.73 Estim Creat Clear Calc 114.93 Est GFR (MDRD) Af Amer 117 Est GFR (MDRD) Non-Af 97 BUN/Creatinine Ratio 8.2 L Glucose 88 Calcium 8.9 Total Bilirubin 0.10 L AST 22 ALT 12 L Alkaline Phosphatase 39 L Total Protein 7.2 Albumin 3.3 Globulin 3.9 Albumin/Globulin Ratio 0.8 L Urine Color Yellow Urine Clarity Clear Urine pH 8.0 Ur Specific [place] 1.015 Urine Protein Negative Urine Glucose (UA) Normal Urine Ketones Negative Urine Occult Blood 10 H Urine Nitrite Negative Urine Bilirubin Negative Urine Urobilinogen Normal Ur Leukocyte Esterase Negative Urine RBC 0 SEEN Urine WBC 0-5 SEEN Ur Squamous Epith Cells 0-5 SEEN Urine Bacteria 1+ Urine Mucus 0 SEEN Blood Type A POSITIVE Radiography Diagnostic Testing: Clinical Impression(s) from Imaging Studies Obstetrics Ultrasound 07/10/23 17:33 IMPRESSION: Single live intrauterine with normal heart rate. Concern for placenta previa. 18-20 weeks anatomy ultrasound is recommended with attention to placental margin Cervix is long and closed. dating by biometry is concordant with provided dating. Electronically Signed: Stoney Bentley MD at 19:29 EDT , Management Discussion w/another healthcare provider: Servicing Manager (Dr. Momin, ACCOUNTING RECONCILIATION CLERK) Discharge Plan Triage Chief Complaint: Vag Bld, Preg ED Provider: Alan Bullock Dx/Rx/DC Orders Prescriptions: No Action Eliquis 5 mg tablet 5 mg PO BID gabapentin 800 mg tablet 300 mg PO Q12H lamotrigine 200 mg tablet extended release 24hr 150 mg PO DAILY enoxaparin [Lovenox] 80 mg/0.8 mL syringe 80 mg subcut Q12H 240 Days Qty: 384 0RF Primary Care Provider: Bonnie Cheema Referrals: Bonnie Cheema MD [Primary Care Provider] - Print Language: Anguillan
[2023-07-10 17:45] LABS: Mucous, Urine 0 SEEN /hpf (<or=2+); Red Blood Cells-Urine 0 SEEN /hpf (0-5)
[2023-07-10 18:17] LABS: Color, Urine Yellow (Yellow); Glucose, Dipstick Normal (Normal); Ketone-Dipstick Negative (Negative); Leukocyte Esterase-Dipstick Negative /ul (Negative); Nitrite-Dipstick Negative (Negative); Occult Blood-Urine 10 /ul (Negative); Protein-Dipstick Negative (Negative); Specific Gravity, Urine 1.015 (1.002-1.030); Urine Bilirubin Dipstick Negative (Negative); Urine Clarity Clear (Clear); Urine Urobilinogen Normal (Normal)
[2023-07-10 18:22] LABS: Absolute Lymphocyte Count 2.01 X10^3/uL (0.83-4.51); Absolute Neutrophil Count 3.9 X10^3/uL (2.0-7.7); Basophil# 0.05 X10^3/uL; Basophil% 0.8 % (0-1); Eosinophil# 0.07 X10^3/uL; Eosinophils% 1.1 % (0-5); Hematocrit 28.7 % (37-47); Hemoglobin 8.5 g/dL (12.0-15.0); Lymphocyte # 2.01 X10^3/ul (0.83-4.51); Lymphocyte % 31.2 % (19-41); Mean Corp Hgb Conc 29.6 g/dL (32-36); Mean Corpuscular Hgb 20.9 pg (27.0-32.0); Mean Corpuscular Volume 70.7 fL (81-99); Mean Platelet Vol. 10.3 fl (6.2-12.0); Monocyte% 6.2 % (0-10); NRBC Flagged by Analyzer 0 % (0-5); Neutrophil # 3.89 X10^3/uL (2.7-7.7); Neutrophil % 60.4 % (47-70); Platelet Count 351 K/mm3 (150-450); RBC Distribution Width CV 19.8 % (11.6-14.6); RBC Distribution Width SD 50.8 fl (35.1-43.9); Red Blood Count 4.06 M/mm3 (4.2-5.4); White Blood Count 6.4 K/mm3 (4.4-11.0)
[2023-07-10 18:43] LABS: ALB/GLOB Ratio 0.8 RATIO (0.9-2.4); AST(SGOT) 22 U/L (15-37); Alanine Aminotransfer ALT/SGPT 12 U/L (13-56); Albumin, Serum 3.3 g/dL (3.2-5.0); Alkaline Phosphatase 39 U/L (45-117); Anion Gap 4 (5-15); BUN 6 mg/dL (7-18); BUN/Creat Ratio 8.2 RATIO (10-20); Calcium,Total 8.9 mg/dL (8.5-10.1); Chloride 110 mmol/L (98-107); Creatinine, Serum 0.73 mg/dL (0.55-1.02); EST Glomerular Filtration Rate 97 mL/min (>60); Est Glom Filt Rate - Afr Amer 117 mL/min (>60); Estimated Creatinine Clearance 114.93 ml/min; Globulin 3.9 g/dL (2.2-4.2); Glucose 88 mg/dL (74-106); Potassium 3.7 mmol/L (3.5-5.1); Protein, Total 7.2 g/dL (6.4-8.2); Sodium Level 136 mmol/L (136-145)
[2023-07-10 19:02] LABS: Bacteria 1+ /hpf (None Seen); Squamous Epithelial Cells - UA 0-5 SEEN /hpf (5-10); White Blood Cells 0-5 SEEN /hpf (0-5)
[2023-07-10 20:00] VITALS: BP 116/78; PULSE 72; RESP 20; O2SAT 99
[2023-07-10 20:46] VITALS: BP 126/90; PULSE 74; RESP 16; TEMP 37; O2SAT 99
== END 2023-07-10 20:47 | disposition home or self-care (01) ==
PROVIDERS: Emergency Provider Emergency Medicine; PCP Internal Medicine; Visit Provider Emergency Medicine
DX: O20.9 Hemorrhage in early pregnancy, unspecified (principal); F31.9 Bipolar disorder, unspecified; O99.342 Other mental disorders complicating pregnancy, second trimester; O99.332 Smoking (tobacco) complicating pregnancy, second trimester; F17.290 Nicotine dependence, other tobacco product, uncomplicated; Z3A.14 14 weeks gestation of pregnancy; Z86.73 Personal history of transient ischemic attack (TIA), and cerebral infarction without residual deficits
CPT/HCPCS: 76816; 80053; 81001; 85025; 86900; 86901; 87086; 99283; A4216

== ENCOUNTER 2023-09-05 13:45 | Emergency (ER) | payer MEDICAID, SELFPAY ==
[2023-09-05 13:46] VITALS: BP 115/81; PULSE 79; RESP 17; TEMP 36.6; O2SAT 99; BMI 31.7
--- NOTE | 2023-09-05 14:14 | EDS_ITS ---
HPI History of Present Illness Chief Complaint: Nausea/Vomiting Informant: patient Onset/Context/Timing Onset: Days (3) Context: Gradual Onset Timing: Continuous Quality: Nausea Location: Abdomen Worsened by: Nothing Relieved by: Nothing Narrative Narrative: Patient presents with nausea and vomiting that has been getting worse over the past 3 days. Patient denies any hematemesis or coffee-ground emesis. Patient states she is unable to keep anything down. Patient states she is approximately 21 weeks . Patient states she feels lightheaded when she stands up. Patient denies any diarrhea or constipation. Patient denies any abdominal pain. Patient denies any urinary complaints. Patient denies any abnormal vaginal bleeding or discharge. Patient also states she had an abscess in her right axilla that drained recently. Patient is unsure if this has anything to do with her nausea or vomiting. PFSH [facility] Medical History Congenital heart valve abnormality Depression Anxiety Smoker Stroke/cerebrovascular accident Opioid abuse Confusion Polysubstance abuse Screening for thyroid disorder Bipolar disorder Hepatitis C Seizures H/O emotional problems Drug abuse Anemia Home Medications ?Medication ?Instructions ?Recorded ?Last Taken ?Type apixaban 5 mg tablet (Eliquis) 5 mg PO BID 05/27/23 Unknown History gabapentin 800 mg tablet 300 mg PO Q12H anxiety 05/27/23 Unknown History lamotrigine 200 mg tablet,extended 150 mg PO DAILY 05/27/23 Unknown History release 24 hr enoxaparin 80 mg/0.8 mL 80 mg (0.8 mL) subcut Q12H 8 05/28/23 Unknown Rx subcutaneous syringe (Lovenox) months #384 mL ondansetron 4 mg disintegrating 4 mg PO Q8H PRN PRN Nausea #10 tabs 09/05/23 Unknown Rx tablet Allergy/AdvReac Type Severity Reaction Status Date / Time No Known Allergies Allergy Verified 09/05/23 13:45 Family History Other Alcohol abuse Anemia Anxiety Arthritis Asthma Breast cancer Cervical cancer Colon cancer Depression Diabetes Heart disease [place]'s chorea Hypertension Mental disorder Myocardial infarction Ovarian cancer Psychiatric care Seizures Thyroid disorder Surgical History History of cervical LEEP biopsy affecting care of mother, antepartum Social History Smoking Status: Current every day smoker tobacco type: e-cigarettes alcohol intake: never substance use type: former substance user what type of physical activity do you participate in: none ROS ROS ED Constitutional Constitutional ED: Denies chills or fever(s) Eyes Eyes: Denies blurry vision or change in vision ENT ENT ED: Denies rhinorrhea or sore throat Cardiovascular Cardiovascular: Denies chest pain or palpitations Respiratory/Chest Respiratory/Chest: Denies cough or dyspnea Gastrointestinal Gastrointestinal: Reports nausea and vomiting; Denies abdominal pain, diarrhea or melena Genitourinary Genitourinary ED: Denies dysuria or hematuria Musculoskeletal Musculoskeletal: Denies back pain or neck pain Integumentary Denies abscess or rash Neurologic Neurologic: Denies headache(s) or weakness Allergic/Immunologic Allergic/Immunologic ED: Denies mouth swelling or urticaria EXAM Physical Exam Const Vital Signs: 09/05/23 13:46 Temperature 97.8 F Temperature Source Temporal Pulse Rate 79 Respiratory Rate 17 Blood Pressure 115/81 H Blood Pressure Mean 92 Pulse Ox 99 Oxygen Delivery Method Room Air Positive well nourished and well developed General Appearance ED: well developed and NAD HEENT Reports moist mucous membranes Neck supple and no JVD Resp normal respiratory effort and clear to auscultation bilaterally Cardio regular rate and regular rhythm GI non-tender and non-distended GI Narrative: There is a gravid uterus noted on palpation. Palpation: soft Extremity normal to inspection General Extremety ED: Negative for edema or tenderness General Extremity: Negative for edema Neuro oriented x3, CN's II-XII intact bilaterally and no sensory deficits noted Sensorium / Orientation: alert Motor Exam: strength 5/5 throughout Psych mental status grossly normal MDM MDM MDM Narrative Medical decision making narrative: Differential diagnosis includes hyperemesis gravidarum, viral gastroenteritis, gastritis, dehydration, and urinary tract infection. CBC will be obtained to assess for leukocytosis and anemia. Comprehensive metabolic profile will be obtained to assess for hepatic function, renal function, and electrolyte abnormality. Lipase will be obtained to assess for pancreatitis. Urinalysis will be obtained to assess for urinary tract infection. Quantitative hCG will be obtained to assess for status. Lab Data Attestation: I reviewed the patient's lab results. Lab results narrative: CBC was reviewed. There is a slight anemia with a hemoglobin of 11.7 and hematocrit of 36.4. This was improved from previous results. Comprehensive metabolic profile was reviewed and was essentially within normal limits. Lipase was reviewed and was normal at 18. Quantitative hCG was reviewed and was 30,472. Urinalysis was reviewed. Urine ketones were 150. There is no evidence of urinary tract infection or hematuria. Labs: Laboratory Results - last 24 hr 09/05/23 14:38 WBC 9.9 RBC 4.35 Hgb 11.7 L Hct 36.4 L MCV 83.7 MCH 26.9 L MCHC 32.1 RDW Std Deviation 67.6 H RDW Coeff of Manjeet 22.9 H Plt Count 330 MPV 10.8 Immature Gran % (Auto) 0.400 Neut % (Auto) 81.7 H Lymph % (Auto) 12.7 L [place] % (Auto) 4.6 Eos % (Auto) 0.2 Baso % (Auto) 0.4 Absolute Neuts (auto) 8.1 H Absolute Lymphs (auto) 1.26 Nucleated RBC % 0 Sodium 137 Potassium 4.0 Chloride 105 Carbon Dioxide 25.0 Anion Gap 7 BUN 6 L Creatinine 0.75 Estim Creat Clear Calc 111.73 Est GFR (MDRD) Af Amer 114 Est GFR (MDRD) Non-Af 95 BUN/Creatinine Ratio 8.0 L Glucose 81 Calcium 9.5 Total Bilirubin 0.20 AST 25 ALT 12 L Alkaline Phosphatase 67 Total Protein 7.4 Albumin 3.0 L Globulin 4.4 H Albumin/Globulin Ratio 0.7 L Lipase 18 HCG, Quant 89195 H Urine Color Yellow Urine Clarity Sl. Cloudy Urine pH 6.0 Ur Specific [place] 1.025 Urine Protein 15 H Urine Glucose (UA) Normal Urine Ketones 150 A* Urine Occult Blood Negative Urine Nitrite Negative Urine Bilirubin Negative Urine Urobilinogen 1 H Ur Leukocyte Esterase 25 H Urine RBC 0 SEEN Urine WBC 0-5 SEEN Ur Squamous Epith Cells 0-5 SEEN Urine Bacteria 2+ Urine Mucus 0 SEEN Treatment and Re-Evaluation :: Patient was given IV fluids and Zofran. Patient was given p.o. fluids. Patient was advised of her findings. Discharge Plan Triage Chief Complaint: Nausea/Vomiting ED Provider: Navdeep Rene Dx/Rx/DC Orders Clinical Impression: Nausea and vomiting, Second trimester Instructions: ED Vomiting (Adult) Prescriptions: New ondansetron 4 mg tablet,disintegrating 4 mg PO Q8H PRN PRN (Reason: Nausea) Qty: 10 0RF No Action Eliquis 5 mg tablet 5 mg PO BID gabapentin 800 mg tablet 300 mg PO Q12H lamotrigine 200 mg tablet extended release 24hr 150 mg PO DAILY enoxaparin [Lovenox] 80 mg/0.8 mL syringe 80 mg subcut Q12H 240 Days Qty: 384 0RF Primary Care Provider: Bonnie Cheema Referrals: Breana Maldonado CNM [Med Staff - Adv Practice Prof] - 3-5 Days Bonnie Cheema MD [Primary Care Provider] - Print Language: Occitan Disposition Disposition: Home, Self Care
[2023-09-05 14:45] LABS: Mucous, Urine 0 SEEN /hpf (<or=2+); Red Blood Cells-Urine 0 SEEN /hpf (0-5)
[2023-09-05] MEDS: Ondansetron 4 MG/2 ML Vial IV (14:46)
[2023-09-05] MEDS: 0.9% Normal Saline (1000mL) 1,000 ML 999 ML IV (14:46)
[2023-09-05 14:49] LABS: Absolute Lymphocyte Count 1.26 X10^3/uL (0.83-4.51); Absolute Neutrophil Count 8.1 X10^3/uL (2.0-7.7); Basophil# 0.04 X10^3/uL; Basophil% 0.4 % (0-1); Color, Urine Yellow (Yellow); Differential Indicated SCAN CRITERIA MET; Eosinophil# 0.02 X10^3/uL; Eosinophils% 0.2 % (0-5); Glucose, Dipstick Normal (Normal); Hematocrit 36.4 % (37-47); Hemoglobin 11.7 g/dL (12.0-15.0); Leukocyte Esterase-Dipstick 25 /ul (Negative); Lymphocyte # 1.26 X10^3/ul (0.83-4.51); Lymphocyte % 12.7 % (19-41); Mean Corp Hgb Conc 32.1 g/dL (32-36); Mean Corpuscular Hgb 26.9 pg (27.0-32.0); Mean Corpuscular Volume 83.7 fL (81-99); Mean Platelet Vol. 10.8 fl (6.2-12.0); Monocyte# 0.46 X10^3/uL; Monocyte% 4.6 % (0-10); NRBC Flagged by Analyzer 0 % (0-5); Neutrophil % 81.7 % (47-70); Nitrite-Dipstick Negative (Negative); Occult Blood-Urine Negative /ul (Negative); POSITIVE MORPHOLOGY YES; Platelet Count 330 K/mm3 (150-450); Protein-Dipstick 15 mg/dl (Negative); RBC Distribution Width CV 22.9 % (11.6-14.6); RBC Distribution Width SD 67.6 fl (35.1-43.9); Red Blood Count 4.35 M/mm3 (4.2-5.4); Specific Gravity, Urine 1.025 (1.002-1.030); Urine Bilirubin Dipstick Negative (Negative); Urine Clarity Sl. Cloudy (Clear); Urine Urobilinogen 1 mg/dl (Normal); White Blood Count 9.9 K/mm3 (4.4-11.0)
[2023-09-05 14:58] LABS: Ketone-Dipstick 150 mg/dl (Negative)
[2023-09-05 15:01] LABS: Bacteria 2+ /hpf (None Seen); Squamous Epithelial Cells - UA 0-5 SEEN /hpf (5-10); White Blood Cells 0-5 SEEN /hpf (0-5)
[2023-09-05 15:09] LABS: ALB/GLOB Ratio 0.7 RATIO (0.9-2.4); AST(SGOT) 25 U/L (15-37); Alanine Aminotransfer ALT/SGPT 12 U/L (13-56); Alkaline Phosphatase 67 U/L (45-117); Anion Gap 7 (5-15); BUN 6 mg/dL (7-18); Calcium,Total 9.5 mg/dL (8.5-10.1); Chloride 105 mmol/L (98-107); Creatinine, Serum 0.75 mg/dL (0.55-1.02); EST Glomerular Filtration Rate 95 mL/min (>60); Est Glom Filt Rate - Afr Amer 114 mL/min (>60); Estimated Creatinine Clearance 111.73 ml/min; Globulin 4.4 g/dL (2.2-4.2); Glucose 81 mg/dL (74-106); Lipase 18 U/L (13-75); Protein, Total 7.4 g/dL (6.4-8.2); Sodium Level 137 mmol/L (136-145)
[2023-09-05 15:29] LABS: hCG Titer Quant., Serum 30472 mIU/mL (1-3)
[2023-09-05 15:43] VITALS: BP 101/64; PULSE 63; RESP 16; TEMP 36.6; O2SAT 100
== END 2023-09-05 15:44 | disposition home or self-care (01) ==
PROVIDERS: Emergency Provider Emergency Medicine; PCP Internal Medicine; Visit Provider Emergency Medicine
DX: O21.9 Vomiting of pregnancy, unspecified (principal); O99.332 Smoking (tobacco) complicating pregnancy, second trimester; F17.290 Nicotine dependence, other tobacco product, uncomplicated; Z3A.21 21 weeks gestation of pregnancy
CPT/HCPCS: 80053; 81001; 83690; 84702; 85025; 96361; 96374; 96376; 99282; J7030; A4216; J2405

== ENCOUNTER 2024-03-30 14:37 | Emergency (ER) | payer MEDICAID, SELFPAY ==
[2024-03-30 14:38] VITALS: BP 118/73; PULSE 118; RESP 18; TEMP 36.2; O2SAT 98; BMI 32.3
--- NOTE | 2024-03-30 14:57 | EDS_ITS ---
HPI History of Present Illness Chief Complaint: Back Informant: patient Onset/Context/Timing Onset: Days (3) Context: Sudden Onset Injury: twisting Timing: Continuous Quality: Sharp Location: Lumbar Worsened by: improves with Movement Relieved by: Nothing Associated Symptoms Associated Symptoms: Negative for Numbness, Tingling, Radiation to Right Leg, Radiation to Left Leg, Fever, Abdominal Pain, Dysuria, Unable to Ambulate, Unable to Transfer, Urinary Retention, Urinary Incontinence, Constipation or Fecal Incontinence Narrative Narrative: Patient presents with back pain that has been getting progressively worse over the past 3 days. Patient states she twisted while she was sitting and felt something pop in her low back. Patient states her pain is sharp. Patient states it is worse with movements. Patient states it is over the lower lumbar area. Patient denies any radiation of the pain to her lower extremities. Patient denies any paresthesias or weakness. Patient denies any bowel or bladder changes. Patient denies any saddle anesthesia. PFSH [facility] Medical History Congenital heart valve abnormality Depression Anxiety Smoker Stroke/cerebrovascular accident Opioid abuse Confusion Polysubstance abuse Screening for thyroid disorder Bipolar disorder Hepatitis C Seizures H/O emotional problems Drug abuse Anemia Home Medications ?Medication ?Instructions ?Recorded ?Last Taken ?Type apixaban 5 mg tablet (Eliquis) 5 mg PO BID 05/27/23 Un known History gabapentin 800 mg tablet 300 mg PO Q12H anxiety 05/26 Unknown History lamotrigine 200 mg tablet,extended 150 mg PO DAILY Unknown History release 24 hr enoxaparin 80 mg/0.8 mL 80 mg (0.8 mL) subcut Q12H 8 05/28/23 Unknown Rx subcutaneous syringe (Lovenox) months #384 mL ondansetron 4 mg disintegrating 4 mg PO Q8H PRN PRN Na usea #10 tabs 09/05/23 Unknown Rx tablet cyclobenzaprine 10 mg tablet 10 mg PO QHS PRN PRN Musc le Spasm 03/30/24 Unknown Rx #10 TABLETS naproxen 500 mg tablet 500 mg PO BID PRN #20 tabs 0 03/30/24 Unknown Rx Allergy/AdvReac Type Severity Reaction Status Date / Time No Known Allergies Allergy Verified 03/30/24 14:38 Family History Other Alcohol abuse Anemia Anxiety Arthritis Asthma Breast cancer Cervical cancer Colon cancer Depression Diabetes Heart disease [place]'s chorea Hypertension Mental disorder Myocardial infarction Ovarian cancer Psychiatric care Seizures Thyroid disorder Surgical History History of cervical LEEP biopsy affecting care of mother, antepartum Social History household members: spouse housing: house Smoking Status: Current every day smoker tobacco type: e-cigarettes alcohol intake: never substance use type: former substance user what type of physical activity do you participate in: none ROS ROS ED Constitutional Constitutional ED: Denies chills or fever(s) Eyes Eyes: Denies blurry vision or change in vision ENT ENT ED: Denies rhinorrhea or sore throat Cardiovascular Cardiovascular: Denies chest pain or palpitations Respiratory/Chest Respiratory/Chest: Denies cough or dyspnea Gastrointestinal Gastrointestinal: Denies nausea or vomiting Genitourinary Genitourinary ED: Denies dysuria or hematuria Musculoskeletal Musculoskeletal: Reports back pain; Denies neck pain Integumentary Denies abscess or rash Neurologic Neurologic: Denies headache(s) or weakness Allergic/Immunologic Allergic/Immunologic ED: Denies mouth swelling or urticaria EXAM Physical Exam Const Vital Signs: 03/30/24 14:38 Temperature 97.2 F L Temperature Source Temporal Pulse Rate 118 H Respiratory Rate 18 Blood Pressure 118/73 Blood Pressure Mean 88 Pulse Ox 98 Oxygen Delivery Method Room Air Positive well nourished and well developed General Appearance ED: well developed and NAD HEENT Reports moist mucous membranes Neck supple and no JVD Back/Spine Back/Spine Narrative: There is tenderness and spasm of the lumbar paraspinal muscles. There is mild midline tenderness. There is no bony crepitance or step-off. There is no deformity. There is no edema or ecchymosis. Range of motion was limited in all motions of the lumbar spine secondary to pain. Strength is 5/5 bilaterally in the lower extremities. Deep tendon reflexes are 2+/4 bilaterally in the lower extremities. Sensation was intact to light touch bilaterally in the lower extremities. Lumbar Spine / Lower Back: ROM limited Extremity normal to inspection Neuro oriented x3 and no sensory deficits noted Sensorium / Orientation: alert Motor Exam: strength 5/5 throughout Deep Tendon Reflexes: Rt Patellar (L4): 2+, Lt Patellar (L4): 2+, Rt Ankle (S1): 2+ and Lt Ankle (S1): 2+ Deep Tendon Reflexes Back: Rt Patellar (L4): 2+, Lt Patellar (L4): 2+, Rt Ankle (S1): 2+ and Lt Ankle (S1): 2+ Psych mental status grossly normal MDM MDM MDM Narrative Medical decision making narrative: Nicotine cessation was discussed. Patient was advised that this is most likely a muscular strain. Patient was instructed to use ice to the area. Patient was given a prescription for Naprosyn. Patient was also given a prescription for a short course of Flexeril to use at bedtime. Patient was instructed to follow-up with her primary care physician in 5 to 7 days. Patient understood and was agreeable with the plan. All questions were answered. Discharge Plan Triage Chief Complaint: Back ED Provider: Navdeep Rene Dx/Rx/DC Orders Clinical Impression: Acute myofascial strain of lumbosacral region, Nicotine vapor product user Instructions: ED Back Sprain/Strain Prescriptions: New cyclobenzaprine 10 mg tablet 10 mg PO QHS PRN PRN (Reason: Muscle Spasm) Qty: 10 0RF naproxen 500 mg tablet 500 mg PO BID PRN Qty: 20 0RF No Action Eliquis 5 mg tablet 5 mg PO BID gabapentin 800 mg tablet 300 mg PO Q12H lamotrigine 200 mg tablet extended release 24hr 150 mg PO DAILY enoxaparin [Lovenox] 80 mg/0.8 mL syringe 80 mg subcut Q12H 240 Days Qty: 384 0RF ondansetron 4 mg tablet,disintegrating 4 mg PO Q8H PRN PRN (Reason: Nausea) Qty: 10 0RF Primary Care Provider: Bonnie Cheema Referrals: Bonnie Cheema MD [Primary Care Provider] - 5-7 Days Print Language: Luxembourgish Disposition Disposition: Home, Self Care
[2024-03-30] MEDS: Naproxen 500 MG Tablet PO (15:11)
== END 2024-03-30 15:26 | disposition home or self-care (01) ==
LOC: ED 15:17
PROVIDERS: Emergency Provider Emergency Medicine; PCP Internal Medicine; Visit Provider Emergency Medicine
DX: S39.012A Strain of muscle, fascia and tendon of lower back, initial encounter (principal); F31.9 Bipolar disorder, unspecified; F17.290 Nicotine dependence, other tobacco product, uncomplicated; X58.XXXA Exposure to other specified factors, initial encounter; Z86.73 Personal history of transient ischemic attack (TIA), and cerebral infarction without residual deficits
CPT/HCPCS: 99282

== ENCOUNTER 2024-05-20 04:47 | Emergency (ER) | payer MEDICAID, SELFPAY ==
[2024-05-20 04:50] VITALS: BP 131/91; PULSE 96; RESP 18; TEMP 36.8; O2SAT 95; BMI 33.2
--- NOTE | 2024-05-20 05:07 | EX.ED.DYSGE1 ---
HPI History of Present Illness Chief Complaint: Nausea/Vomiting Narrative Narrative: Patient is a 33-year-old female with past medical history of congenital heart valve abnormality, depression, anxiety, CVA, opioid abuse/polysubstance abuse, hepatitis C, seizures who presents to the emergency department with a chief complaint of nausea vomiting. Patient states that around midnight she woke up and has had persistent nausea and vomiting and cannot get it to stop. Patient denies any sick contacts. Patient has had before going to bed last night she felt fine. [facility] Medical History Congenital heart valve abnormality Depression Anxiety Smoker Stroke/cerebrovascular accident Opioid abuse Confusion Polysubstance abuse Screening for thyroid disorder Bipolar disorder Hepatitis C Seizures H/O emotional problems Drug abuse Anemia Home Medications ?Medication ?Instructions ?Recorded ?Last Taken ?Type gabapentin 800 mg tablet 600 mg PO TID anxiety 05/27/23 Unknown History lamotrigine 200 mg tablet,extended 150 mg PO DAILY 05/27/23 Unknown History release 24 hr dicyclomine 20 mg tablet 20 mg PO TID #30 tabs 05/20/24 Unknown Rx ondansetron 4 mg disintegrating 4 mg PO Q6H PRN nausea and 05/20/24 Unknown Rx tablet vomiting #30 tabs Allergy/AdvReac Type Severity Reaction Status Date / Time No Known Allergies Allergy Verified 03/30/24 14:38 Family History Other Alcohol abuse Anemia Anxiety Arthritis Asthma Breast cancer Cervical cancer Colon cancer Depression Diabetes Heart disease Deirdre's chorea Hypertension Mental disorder Myocardial infarction Ovarian cancer Psychiatric care Seizures Thyroid disorder Surgical History History of cervical LEEP biopsy affecting care of mother, antepartum Social History household members: spouse housing: house Smoking Status: Current every day smoker tobacco type: e-cigarettes alcohol intake: never substance use type: former substance user what type of physical activity do you participate in: none ROS ROS ED ROS Narrative Constitutional: Denies fevers, chills, headaches, lightness, dizziness Eyes: Denies change in vision double vision blurry vision Abdomen: Complains of nausea and vomiting as noted above denies any abdominal pain : Denies any urinary symptoms Neurological: Denies any numbness, weakness, tingling Musculoskeletal: Denies back pain Skin: Denies any rashes or lesions EXAM Physical Exam Narrative Exam Narrative: General: Patient lying in bed overall looks like she did not feel well Head: Atraumatic, normocephalic Eyes: PERRL bilaterally, EOMI bilaterally, no conjunctival injection noted Neck: Soft, supple, trachea midline Cardiovascular: Regular rate and rhythm no murmurs gallops rubs noted Respiratory: Clear to auscultation bilaterally Abdomen: Soft, nondistended, nontender to palpation Extremities: +5/5 strength noted in the bilateral upper and lower extremities Neurological: Patient follow commands and that she was at [facility] year is 2024 Skin: Warm, dry, tact no rashes or lesions noted Const Vital Signs: 05/20/24 04:50 Temperature 98.2 F Temperature Source Oral Pulse Rate 96 Respiratory Rate 18 Blood Pressure 131/91 H Blood Pressure Mean 104 Pulse Ox 95 Oxygen Delivery Method Room Air MDM MDM MDM Narrative Medical decision making narrative: Patient is a 33-year-old female who presented to the emergency department the chief complaint of nausea and vomiting since midnight. On the differential diagnose includes but not limited to COVID, flu, viral gastroenteritis secondary to other viral etiology. Once workup is obtained reviewed she will be reevaluated. Patient be given IV fluids and Zofran. Patient CBC reviewed showed white blood count of 13,000, hemoglobin stable 13.5, platelet count was normal at 395. Patient sodium was 139, potassium 4.2, creatinine was 1.01. Patient's AST and ALT were 32 and 15 respectively, lipase normal at 38 test was negative. Patient's COVID flu and RSV are pending. On reevaluation patient she is feeling much improved she would like to go home at this point in time. Patient was advised to follow-up with her doctor in the outpatient setting and start with a bland diet advance as tolerated. Patient given prescriptions for Bentyl and Zofran sent to the pharmacy. She was vies return with worsening symptoms and concerns. She is agreeable this plan all question concerns answered she was discharged home in stable condition. Lab Data Labs: Laboratory Results - last 24 hr 05/20/24 05:28 WBC 13.8 H RBC 4.88 Hgb 13.5 Hct 40.9 MCV 83.8 MCH 27.7 MCHC 33.0 RDW Std Deviation 46.1 H RDW Coeff of Manjeet 15.2 H Plt Count 395 MPV 11.2 Immature Gran % (Auto) 0.400 Neut % (Auto) 88.5 H Lymph % (Auto) 7.1 L Arroyo % (Auto) 3.5 Eos % (Auto) 0.1 Baso % (Auto) 0.4 Absolute Neuts (auto) 12.2 H Absolute Lymphs (auto) 0.98 Nucleated RBC % 0 Sodium 139 Potassium 4.2 Chloride 103 Carbon Dioxide 24.8 Anion Gap 12 BUN 13 Creatinine 1.01 Estim Creat Clear Calc 81.13 Est GFR (MDRD) Non-Af 75 BUN/Creatinine Ratio 12.4 Glucose 106 H Calcium 9.4 Total Bilirubin 0.42 AST 32 ALT 15 Alkaline Phosphatase 66 Total Protein 8.1 Albumin 4.8 Globulin 3.3 Albumin/Globulin Ratio 1.4 Lipase 30 Serum , Qual NEGATIVE Discharge Plan Triage Chief Complaint: Nausea/Vomiting ED Provider: Nathan Oconnor Dx/Rx/DC Orders Clinical Impression: Nausea & vomiting Prescriptions: New ondansetron 4 mg tablet,disintegrating 4 mg PO Q6H PRN (Reason: nausea and vomiting) Qty: 30 0RF dicyclomine 20 mg tablet 20 mg PO TID Qty: 30 0RF No Action gabapentin 800 mg tablet 600 mg PO TID lamotrigine 200 mg tablet extended release 24hr 150 mg PO DAILY Primary Care Provider: Bonnie Cheema Referrals: Bonnie Cheema MD [Primary Care Provider] - Activity Restrictions/Additional Instructions: Start with bland diet and advance as tolerated. Use the Zofran that was sent to your pharmacy as prescribed for nausea. Return with worsening symptoms or other concerns. Print Language: Malaysian Disposition Disposition: Home, Self Care
[2024-05-20] MEDS: Ondansetron 4 MG/2 ML Vial IV (05:29)
[2024-05-20] MEDS: 0.9% Normal Saline (1000mL) 1,000 ML 999 ML IV (05:29)
[2024-05-20 05:40] LABS: Absolute Lymphocyte Count 0.98 X10^3/uL (0.83-4.51); Absolute Neutrophil Count 12.2 X10^3/uL (2.0-7.7); Basophil# 0.05 X10^3/uL; Basophil% 0.4 % (0-1); Eosinophil# 0.01 X10^3/uL; Eosinophils% 0.1 % (0-5); Hematocrit 40.9 % (37-47); Hemoglobin 13.5 g/dL (12.0-15.0); Lymphocyte # 0.98 X10^3/ul (0.83-4.51); Lymphocyte % 7.1 % (19-41); Mean Corpuscular Hgb 27.7 pg (27.0-32.0); Mean Corpuscular Volume 83.8 fL (81-99); Mean Platelet Vol. 11.2 fl (6.2-12.0); Monocyte# 0.48 X10^3/uL; Monocyte% 3.5 % (0-10); NRBC Flagged by Analyzer 0 % (0-5); Neutrophil # 12.23 X10^3/uL (2.7-7.7); Neutrophil % 88.5 % (47-70); Platelet Count 395 K/mm3 (150-450); RBC Distribution Width CV 15.2 % (11.6-14.6); RBC Distribution Width SD 46.1 fl (35.1-43.9); Red Blood Count 4.88 M/mm3 (4.2-5.4); White Blood Count 13.8 K/mm3 (4.4-11.0)
[2024-05-20 05:59] LABS: Internal QC Validated? YES +Cl - CLEAR BKGD; Pregnancy, Serum, hCG Quali. NEGATIVE Negative
[2024-05-20 06:24] LABS: ALB/GLOB Ratio 1.4 RATIO (0.9-2.4); AST(SGOT) 32 U/L (<=31); Alanine Aminotransfer ALT/SGPT 15 U/L (<=34); Albumin, Serum 4.8 g/dL (3.5-5.0); Alkaline Phosphatase 66 U/L (35-104); Anion Gap 12 (5-15); BUN 13 mg/dL (4-19); BUN/Creat Ratio 12.4 RATIO (10-20); Calcium,Total 9.4 mg/dL (7.6-11.0); Carbon Dioxide 24.8 mmol/L (21.0-32.0); Chloride 103 mmol/L (98-108); Creatinine, Serum 1.01 mg/dL (0.70-1.20); EST Glomerular Filtration Rate 75 (>60); Estimated Creatinine Clearance 81.13 ml/min (50-250); Globulin 3.3 g/dL (2.2-4.2); Glucose 106 mg/dL (70-99); Lipase 30 U/L (13-75); Potassium 4.2 mmol/L (3.3-5.1); Protein, Total 8.1 g/dL (5.9-8.4); Sodium Level 139 mmol/L (133-145); Total Bilirubin 0.42 mg/dL (0.00-1.30)
[2024-05-20 06:42] VITALS: BP 141/83; PULSE 86; RESP 16; TEMP 36.9; O2SAT 96
== END 2024-05-20 06:48 | disposition home or self-care (01) ==
PROVIDERS: Emergency Provider Emergency Medicine; PCP Internal Medicine; Visit Provider Emergency Medicine
DX: R11.2 Nausea with vomiting, unspecified (principal); F31.9 Bipolar disorder, unspecified; F17.290 Nicotine dependence, other tobacco product, uncomplicated; Z86.73 Personal history of transient ischemic attack (TIA), and cerebral infarction without residual deficits
CPT/HCPCS: 80053; 83690; 84703; 85025; 87631; 96361; 96374; 96376; 99282; A4216; J2405

== ENCOUNTER → 2024-06-23 | Outpatient (CLI) | payer MEDICAID, SELFPAY ==
[2024-06-23 13:09] LABS: Hematocrit 36.2 % (37-47); Hemoglobin 11.8 g/dL (12.0-15.0); Mean Corp Hgb Conc 32.6 g/dL (32-36); Mean Corpuscular Hgb 27.4 pg (27.0-32.0); Mean Corpuscular Volume 84.2 fL (81-99); Platelet Count 368 K/mm3 (150-450); RBC Distribution Width CV 15.1 % (11.6-14.6); RBC Distribution Width SD 45.6 fl (35.1-43.9); White Blood Count 4.7 K/mm3 (4.4-11.0)
[2024-06-23 13:48] LABS: Hepatitis B Surface Antibody REAC
[2024-06-23 14:10] LABS: ALB/GLOB Ratio 1.5 RATIO (0.9-2.4); AST(SGOT) 25 U/L (<=31); Alanine Aminotransfer ALT/SGPT 12 U/L (<=34); Albumin, Serum 4.5 g/dL (3.5-5.0); Alkaline Phosphatase 53 U/L (35-104); Anion Gap 13 (5-15); BUN 9 mg/dL (4-19); Calcium,Total 9.6 mg/dL (7.6-11.0); Carbon Dioxide 21.4 mmol/L (21.0-32.0); Chloride 103 mmol/L (98-108); Creatinine, Serum 0.93 mg/dL (0.70-1.20); EST Glomerular Filtration Rate 83 (>60); Globulin 3.1 g/dL (2.2-4.2); Glucose 95 mg/dL (70-99); HIV Nonreactive (Nonreactive); Hepatitis B Surface Antigen Nonreactive (Nonreactive); Potassium 4.2 mmol/L (3.3-5.1); Protein, Total 7.5 g/dL (5.9-8.4); Sodium Level 137 mmol/L (133-145); Total Bilirubin 0.21 mg/dL (0.00-1.30)
[2024-06-27 01:07] LABS: HCV Quant. RNA PCR HCV Not Detected IU/mL (.); Hepatitis A AB, Total Positive (Negative)
== END | disposition home or self-care (01) ==
LOC: LAB 12:15
PROVIDERS: PCP Internal Medicine; Referring Provider Family Medicine; Visit Provider Family Medicine
DX: F11.20 Opioid dependence, uncomplicated (principal)
CPT/HCPCS: 36415; 80053; 85027; 86703; 86706; 86708; 87340; 87522; 87902